=== PATIENT | male | born 1960 | race Caucasian/White ===

== ENCOUNTER 2023-09-27 09:53 | Outpatient (OUT) | payer OTHER, SELFPAY ==
--- NOTE | 2023-09-27 10:00 | ECG_ITS ---
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
--- NOTE | 2023-09-27 10:39 | P.GSHP_ITS ---
History of Present Illness History of Present Illness Chief complaint: right hydrocele Narrative: Patient presents for preadmission testing. The patient reports Intermittent right testicular swelling for over a year. The patient has been on two courses of antibiotics and the swelling has returned. He states he does have discomfort swelling. He denies dysuria, hematuria, fever, nausea, or any other complaints. Review of Systems ROS Narrative REVIEW OF SYSTEMS: Negative except as stated in HPI, ten or more systems reviewed. Constitutional: No fever , chills, weakness ENT: No sore throat or epistaxis Cardiovascular: No edema, chest pain, palpitations, or activity intolerance Respiratory: No shortness of breath, cough, or wheezing Musculoskeletal: No joint pain or swelling Gastrointestinal: No abdominal pain, constipation, diarrhea, or vomiting Genitourinary: No dysuria or hematuria Neurological: No numbness, tingling, weakness, or headache Psychiatric: No mood changes PFSH PFS Medical History (Updated 09/27/23 @ 10:26 by Sheila Polanco NP) Anxiety ?F41.9 - Anxiety disorder, unspecified (ICD-10) Kidney stones ?N20.0 - Calculus of kidney (ICD-10) Delayed recovery from anesthesia Male circumcision ?Z41.2 - Encounter for routine and ritual male circumcision (ICD-10) Hypertension ?I10 - Essential (primary) hypertension (ICD-10) Hyperlipidemia ?E78.5 - Hyperlipidemia, unspecified (ICD-10) HIV (human immunodeficiency virus infection) ?B20 - Human immunodeficiency virus [HIV] disease (ICD-10) BPH (benign prostatic hyperplasia) ?N40.0 - Benign prostatic hyperplasia without lower urinary tract symptoms (ICD-10) Hydrocele ?N43.3 - Hydrocele, unspecified (ICD-10) Surgical History (Updated 09/27/23 @ 10:26 by Sheila Polanco NP) History of colonoscopy ?Z98.890 - Other specified postprocedural states (ICD-10) Family History (Updated 09/27/23 @ 10:47 by Sheila Polanco NP) Other Family history of heart disease Testicular cancer Social History (Updated 09/27/23 @ 10:20 by Sheila Polanco NP) Within the past year, how often did you have a drink containing alcohol: never Score interpretation: A score less than 4 is consistent with normal alcohol consumption. Smoking status: Former smoker Non-prescribed substance use: denies use Previous occupational history: [employer] Highest level of school completed/degree received: high school graduate Meds Home Medications and Allergies Home Medications Medication Instructions Recorded Confirmed Type aspirin 81 mg tablet,delayed 81 mg PO DAILY 09/27/23 09/27/23 History release (Adult Aspirin Regimen) efavirenz 600 mg-emtricitabine 200 1 tab PO DAILY 09/27/23 09/27/23 History mg-tenofovir disoprox 300 mg tablet lisinopril 20 1 tab PO DAILY 09/27/23 09/27/23 History mg-hydrochlorothiazide 25 mg tablet simvastatin 40 mg tablet 40 mg PO .QHS 09/27/23 09/27/23 History Allergies Allergy/AdvReac Type Severity Reaction Status Date / Time Penicillins Allergy Rash Verified 09/27/23 10:16 Sulfa (Sulfonamide Allergy Rash Verified 09/27/23 10:16 Antibiotics) Exam Narrative Exam Narrative: Constitutional: Awake, alert, comfortable, well-appearing, nontoxic, interactive, vital signs as charted Head: Normocephalic, atraumatic Neck: Supple, normal appearance, normal range of motion, no meningeal signs, no lymphadenopathy Respiratory: No respiratory distress, breath sounds clear Cardiovascular: Regular rate and rhythm, strong and regular heart tones Abdomen: Nontender, normal bowel sounds, soft, no CVA tenderness Musculoskeletal: Normal gait, no swelling or edema Skin: No rashes or induration, no lesions, only visible skin inspected Neuro: No neurological deficits, normal sensation Psychiatric: Oriented ?3, normal affect Assessment and Plan Assessment and Plan (1) Hydrocele: Plan Right hydrocelectomy scheduled with Dr. Spangler 10/11/2023.
[2023-09-27 10:46] LABS: Basophils Absolute Auto 0.1 10^3/uL (0.0-0.1); Basophils Percent Auto 1.1 % (0.2-2.0); Eosinophils Absolute Auto 0.3 10^3/uL (0.0-0.7); Eosinophils Percent Auto 5.4 % (0.9-7.0); Hematocrit 42.4 % (42.0-54.0); Hemoglobin 13.4 g/dL (14.0-18.0); Immature Granulocytes Abs Auto 0.03 10^3/uL (0.00-0.03); Immature Granulocytes Pct Auto 0.6 % (0.0-0.5); Lymphocytes Absolute Auto 1.3 10^3/uL (1.2-3.8); Mean Corpuscular HGB Conc 31.6 g/dL (29.9-35.2); Mean Corpuscular Hemoglobin 29.9 pg (25.9-34.0); Mean Corpuscular Volume 94.6 fL (80.0-94.0); Mean Platelet Volume 9.2 fL (9.5-13.5); Monocytes Absolute Auto 0.5 10^3/uL (0.3-0.8); Monocytes Percent Auto 8.6 % (1.7-12.0); Neutrophils Absolute Auto 3.2 10^3/uL (1.4-6.5); Neutrophils Percent Auto 60.3 % (43.0-75.0); Platelet Count 317 10^3/uL (150-450); Red Blood Count 4.48 10^6/uL (4.70-6.10); Red Cell Distribution Width 12.1 % (11.0-15.0); White Blood Count 5.3 10^3/uL (4.0-11.0)
[2023-09-27 11:28] LABS: Anion Gap 10.9; BUN Creatinine Ratio 13.5; Calcium 9.7 mg/dL (8.5-10.1); Carbon Dioxide 31.9 mmol/L (21.0-32.0); Chloride 100 mmol/L (98-107); Estimated GFR (African America >60 (>=60); Estimated GFR (Non-African Ame >60 (>=60); Glucose 105 mg/dL (74-106); Potassium 3.8 mmol/L (3.5-5.1); Sodium 139 mmol/L (136-145)
[2023-09-27 11:56] LABS: INR 0.99; Partial Thromboplastin Time 27.1 sec (22.3-36.2); Prothrombin Time 10.5 sec (9.0-11.6)
== END 2023-09-27 09:54 | disposition home or self-care (01) ==
PROVIDERS: Family Provider Family Medicine; Visit Provider Urology
DX: Z01.810 Encounter for preprocedural cardiovascular examination (principal); Z01.818 Encounter for other preprocedural examination; Z01.812 Encounter for preprocedural laboratory examination; N43.2 Other hydrocele
CPT/HCPCS: 80048; 85025; 85610; 85730; 93005; G0463

== ENCOUNTER 2023-10-11 11:40 | Day surgery (SDC) | payer OTHER, SELFPAY ==
[2023-09-27 10:36] VITALS: BP 133/76; PULSE 55; RESP 14; TEMP 36.3; O2SAT 98; BMI 26.0
[2023-10-11] VITALS (9 sets, daily range): BP systolic 118–136; BP diastolic 65–78; PULSE 65–82; RESP 14–35; TEMP 36.2–36.5; O2SAT 92–98; BMI 26.0
--- OUTSIDE RECORDS SUMMARY | 2023-10-11 11:42 | XMS_ITS | CCD ---
Author Name Unknown Address [address] [place] [address] Organization [facility] Care Team Providers Care Financial Management Name Role Phone JOVANNI WHITNEY Primary Care Physician George GALINDO Attending Unavailable JOVANNI WHITNEY Referring Unavailable George GALINDO Attending Unavailable George GALINDO Attending Unavailable Allergies Allergy Classification Reported Allergen(s) Allergy Type Date of Onset Reaction(s) Facility (2 sources) Penicillin; Translations: [penicillin] Drug Allergy Eruption of skin (disorder) [facility] (2 sources) Sulfonamides (Antibiotic); Translations: [sulfa drugs] Drug allergy Eruption of skin (disorder) [facility] Medications Current Medications Medication Drug Class(es) Dates Sig (Normalized) Sig (Original) aspirin 81 mg oral capsule (1 source) Platelet Aggregation Inhibitor, Nonsteroidal Anti-inflammatory Drug Start: 08-10-2023 take 1 mg by mouth every twenty-four hours aspirin 81 mg oral capsule mg cap(s), Oral, q24hr, Refills(s) 0 Start Date: 08/10/23 Status: Ordered Completed/Discontinued Medications Medication Drug Class(es) Dates Sig (Normalized) Sig (Original) efavirenz 600 mg / emtricitabine 200 mg / tenofovir disoproxil fumarate 300 mg oral tablet (1 source) Human Immunodeficiency Virus Nucleoside Analog Reverse Transcriptase Inhibitor, Human Immunodeficiency Virus 1 Non-Nucleoside Analog Reverse Transcriptase Inhibitor Start: efavirenz/emtri citabine/tenofo vir 600 mg-200 mg-300 mg oral tablet Refill(s) 0, 30 EA, 0 Refill(s), TAKE 1 TABLET BY MOUTH EVERY DAY Start Date: 08/10/23 Status: Ordered hydroCHLOROthiazide 25 mg / lisinopril 20 mg oral tablet (1 source) Thiazide Diuretic, Angiotensin Converting Enzyme Inhibitor Start: 3 hydrochlorothia zide-lisinopril 25 mg-20 mg Tab Refill(s) 0, 90 EA, 0 Refill(s), TAKE 1 TABLET BY MOUTH IN THE MORNING Start Date: 08/10/23 Status: Ordered simvastatin 40 mg oral tablet (1 source) HMG-CoA Reductase Inhibitor Start: 3 simvastatin 40 mg Tab 90 EA, 0 Refill(s), TAKE 1 TABLET BY MOUTH EVERY NIGHT AT BEDTIME, Refills(s) 0 Start Date: 08/10/23 Status: Ordered Problems Problem Classification Problem Date Documented Date Episodic/Chronic Disorders of lipid metabolism (1 source) Hyperlipidemia 08-09-2023 Chronic Essential hypertension (1 source) Hypertensive disorder 08-09-2023 Chronic HIV infection (1 source) HIV positive 08-10-2023 Chronic Hyperplasia of prostate (2 sources) Benign prostatic hypertrophy without outflow obstruction; Translations: [Benign prostatic hyperplasia without lower urinary tract symptoms] Onset: 08-10-2023 Chronic Other aftercare (1 source) Long-term current use of aspirin; Translations: [MCFP (current) use of aspirin] Onset: 08-10-2023 Episodic Other male genital disorders (1 source) Hydrocele of testis; Translations: [Hydrocele, unspecified] Onset: 08-10-2023 Episodic Other male genital disorders (1 source) Disorder of male genital organ 08-10-2023 Episodic Unclassified (1 source) Long-term current use of aspirin 08-10-2023 Results Test Name Value Interpretation Reference Range [facility] Insurance Correspondenceon 0 10-08-2023 Insurance Correspondence [id number] 66#1.00TIFF Normal [facility] ECG 12-Leadon 09-28-2023 ECG 12-Lead [id number] #1.00TIFF Normal [facility] Lab Reportson 09-27-2023 Lab Reports [id number] #1.00TIFF Normal [facility] Lab Reports [id number] #1.00TIFF [facility] Consent for Procedure/Surger yon 08-13-2023 Consent for Procedure/Surgery [id number] 3#1.00TIFF [facility] Physician Referralon 023 Physician Referral [id number] #1.00TIFF [facility] Screenson 08-13-2023 Screens [id number] 8#1.00TIFF [facility] Ambulatory Visit Summaryon 10-10-2022 Ambulatory Visit Summary KRAIG FLOREZ JR :1960 Visit Date:08/10/2023 Ambulatory Visit Instructions Your Diagnosis Hydrocele BPH (benign prostatic hyperplasia) Aspirin long-term use Tests Performed Urnls Dip Stick Auto w/o Microscopy POC 24714 Your Care Team Attending Physician - George GALINDO MD Primary Care Physician - JOVANNI [place] Referring Physician - DEVONTE HASTINGS ResidentJOVANNI This Is Your Medications List Contact prescribing physician if questions or concerns aspirin (aspirin 81 mg oral capsule) efavirenz/emtricitab ine/tenofovir (efavirenz/emtricita bine/tenofovir 600 mg-200 mg-300 mg oral tablet) hydrochlorothiazide- lisinopril (hydrochlorothiazide -lisinopril 25 mg-20 mg Tab) simvastatin (simvastatin 40 mg Tab) Procedures Performed None. Discharge Vitals Heart Rate (Peripheral) 62 Respiratory Rate 16 Blood Pressure 121/69 Height 165 cm Height 65 in Weight 68.2 kg Weight 150.04 lb BMI 25.05 What to do next You Need to Schedule the Following Appointments Follow Up with JOSIE VELASQUEZ, ELIZABETH Smart When: Comments: sched R hydrocelectomy Where: [facility] [address] , [place] [address]- [phone] Medications What How Much When Instructions Unchanged aspirin (aspirin 81 mg oral capsule) Every 24 hours Contact prescribing physician if questions or concerns Unchanged efavirenz/ emtricitabine/ tenofovir (efavirenz/ emtricitabine/ tenofovir 600 mg-200 mg-300 mg oral tablet) 30 EA, 0 Refill(s), TAKE 1 TABLET BY MOUTH EVERY DAY Contact prescribing physician if questions or concerns Unchanged hydrochlorothiazide- lisinopril (hydrochlorothiazide -lisinopril 25 mg-20 mg Tab) 90 EA, 0 Refill(s), TAKE 1 TABLET BY MOUTH IN THE MORNING Contact prescribing physician if questions or concerns Unchanged simvastatin (simvastatin 40 mg Tab) 90 EA, 0 Refill(s), TAKE 1 TABLET BY MOUTH EVERY NIGHT AT BEDTIME Contact prescribing physician if questions or concerns Test Results Urnls Dip Stick Auto w/o Microscopy POC 26384 (08/10/2023) Bilirubin Urine Dipstick - Negative Blood Urine Dipstick - Negative Glucose Urine Dipstick - Negative Ketones Urine Dipstick - Negative Leukocytes Urine Dipstick - Negative Nitrite Urine Dipstick - Negative Protein Urine Dipstick - Negative Specific [place] Urine Dipstick - 1.015 Urine Appearance Urine Dipstick - Clear Urine Color Urine Dipstick - Yellow Urobilinogen Urine Dipstick - Normal 0.2-1 EU/dl pH Urine Dipstick - 7 Allergies penicillin (Rash) sulfa drugs (Rash) Problems Ongoing - Any problem that you are currently receiving treatment for. Aspirin long-term use BPH (benign prostatic hyperplasia) HIV positive Hydrocele Hyperlipidemia Hypertension Patient Survey You may receive a survey via text or e-mail asking about your office visit. Please share your experience with us by completing your survey. We appreciate your feedback and thank you for choosing us for your care. Education Materials Hydrocelectomy, Adult, Care After The following information offers guidance on how to care for yourself after your procedure. Your health care provider may also give you more specific instructions. If you have problems or questions, contact your health care provider. What can I expect after the procedure? After your procedure, it is common to have: ? Mild discomfort and swelling in the pouch that holds your testicles (scrotum). ? Bruising of the scrotum. Follow these instructions at home: Medicines ? Take ojal-kdh-ttnfbun and prescription medicines only as told by your health care provider. ? Ask your health care provider if the medicine prescribed to you: ? Requires you to avoid driving or using machinery. ? Can cause constipation. You may need to take these actions to prevent or treat constipation: ? Drink enough fluid to keep your urine pale yellow. ? Take higp-dtf-xtlxddt or prescription medicines. ? Eat foods that are high in fiber, such as beans, whole grains, and fresh fruits and vegetables. ? Limit foods that are high in fat and processed sugars, such as fried or sweet foods. Bathing ? Do not take baths, swim, or use a hot tub until your health care provider approves. Ask your health care provider if you may take showers. You may only be allowed to take sponge baths. ? If you were told to wear an athletic support strap (scrotal support), keep it dry. Take it off when you shower or bathe. Incision care ? Follow instructions from your health care provider about how to take care of your incision. Make sure you: ? Wash your hands with soap and water for at least 20 seconds before and after you change your bandage (dressing). If soap and water are not available, use hand assistant librarian. ? Change your dressing as told by your health care provider. ? Leave stitches (sutures), skin glue, or (more content not included)... Normal [facility] Patient Educationon 08-10-20 Patient Education Urology Hydrocelectomy, Adult, Care After The following information offers guidance on how to care for yourself after your procedure. Your health care provider may also give you more specific instructions. If you have problems or questions, contact your health care provider. What can I expect after the procedure? After your procedure, it is common to have: ? Mild discomfort and swelling in the pouch that holds your testicles (scrotum). ? Bruising of the scrotum. Follow these instructions at home: Medicines ? Take knpp-tnr-cefbteq and prescription medicines only as told by your health care provider. ? Ask your health care provider if the medicine prescribed to you: ? Requires you to avoid driving or using machinery. ? Can cause constipation. You may need to take these actions to prevent or treat constipation: ? Drink enough fluid to keep your urine pale yellow. ? Take awcs-pvf-hhvxyxr or prescription medicines. ? Eat foods that are high in fiber, such as beans, whole grains, and fresh fruits and vegetables. ? Limit foods that are high in fat and processed sugars, such as fried or sweet foods. Bathing ? Do not take baths, swim, or use a hot tub until your health care provider approves. Ask your health care provider if you may take showers. You may only be allowed to take sponge baths. ? If you were told to wear an athletic support strap (scrotal support), keep it dry. Take it off when you shower or bathe. Incision care ? Follow instructions from your health care provider about how to take care of your incision. Make sure you: ? Wash your hands with soap and water for at least 20 seconds before and after you change your bandage (dressing). If soap and water are not available, use hand assistant librarian. ? Change your dressing as told by your health care provider. ? Leave stitches (sutures), skin glue, or adhesive strips in place. These skin closures may need to stay in place for 2 weeks or longer. If adhesive strip edges start to loosen and curl up, you may trim the loose edges. Do not remove adhesive strips completely unless your health care provider tells you to do that. ? Check your incision and scrotum every day for signs of infection. Check for: ? More redness, swelling, or pain. ? Fluid or blood. ? Warmth. ? Pus or a bad smell. Managing pain and swelling If directed, put ice on the affected area. To do this: ? Put ice in a plastic bag. ? Place a towel between your skin and the bag. ? Leave the ice on for 20 minutes, 2?3 times per day. ? Remove the ice if your skin turns bright red. This is very important. If you cannot feel pain, heat, or cold, you have a greater risk of damage to the area. Activity ? Do not lift anything that is heavier than 10 lb (4.5 kg) until your health care provider says that it is safe. ? If you were given a sedative during the procedure, it can affect you for several hours. Do not drive or operate machinery until your health care provider says that it is safe. ? Ask your health care provider when it is safe to drive. ? Return to your normal activities as told by your health care provider. Ask your health care provider what activities are safe for you. General instructions ? Do not use any products that contain nicotine or tobacco. These products include cigarettes, chewing tobacco, and vaping devices, such as e-cigarettes. These can delay healing after surgery. If you need help quitting, ask your health care provider. ? If you were given a scrotal support, wear it as told by your health care provider. ? Keep all follow-up visits. This is important. If you had a drain put in during the procedure, you will need to have it removed at a follow-up visit. Contact a health care provider if: ? Your pain is not controlled with medicine. ? You have more redness, swelling, or pain around your scrotum. ? You have fluid or blood coming from your incision. ? Your incision feels warm to the touch. ? You have pus or a bad smell coming from your incision. ? You have a fever. Get help right away if: ? You develop shaking, chills, and a fever that is higher than 101.8?F (38.8?C). ? You have redness or swelling that starts at your scrotum and spreads outward to your whole groin. ? You develop swelling in your legs. ? You have difficulty breathing. These symptoms may be an emergency. Get help right away. Call 911. ? Do not wait to see if the symptoms will go away. ? Do not drive yourself to the hospital. Summary ? After a hydrocelectomy, it is common to have mild discomfort, swelling, and bruising. ? Do not take baths, swim, or use a hot tub until your health care provider approves. Ask your health care provider if you may take showers. ? If directed, put ice on the affected area to help with pain and swelling. ? Do not lift anything that is heavier than 10 lb (4.5 kg) until your health care provider says th (more content not included)... Normal [facility] RAD - Ultrasound Reporton RAD - Ultrasound Report [id number] #1.00TIFF Normal [facility] Vital Signs Date Time Vital Sign Value Performing Clinician Hamilton barlow 08-10-2023 09:56-0500 Blood Pressure Location George GALINDO [facility] 08-10-2023 09:56-0500 Diastolic blood pressure 69 mm[Hg] George GALINDO [facility] 08-10-2023 09:56-0500 Heart rate 62 /min Georgeemeka GALINDO [facility] 08-10-2023 09:56-0500 Respiratory rate 16 /min George GALINDO [facility] 08-10-2023 09:56-0500 Systolic blood pressure 121 mm[Hg] Georgeemeka GALINDO [facility] Encounters Encounter Date Encounter Type Care Provider Facility Start: 11-05-2023 ambulatory George Ortizi ty:[facility] Start: 10-11-2023 ambulatory George GALINDO Facili ty:[id number] Start: 08-10-2023 End: 08-11-2023 ambulatory JOVANNI WHITNEY Facility:[facility] Start: 08-10-2023 End: 08-10-2023 Patient encounter procedure George GALINDO [facility] Start: 05-16-2023 ambulatory George GALINDO Facility :[facility] Procedures Date Procedure Procedure Detail Performing Clinician None (qualifier value) Clari GALINDO Immunizations Immunization Date Immunization Notes Care Provider [facility] 07-14-2022 influenza virus vaccine, unspecified formulation George GALINDO [facility] 09-03-2021 SARS-CoV-2 (COVID-19 ) mRNA-1273 vaccine George GALINDO [facility] 07-11-2021 influenza virus vaccine, unspecified formulation George GALINDO [facility] 01-13-2021 SARS-CoV-2 (COVID-19 ) mRNA-1273 vaccine [place] [facility] 12-14-2020 SARS-CoV-2 (COVID-19 ) mRNA-1273 vaccine George GALINDO [facility] 07-10-2020 influenza virus vaccine, unspecified formulation George GALINDO [facility] 07-20-2019 influenza virus vaccine, unspecified formulation George GALINDO [facility] 06-21-2018 influenza virus vaccine, unspecified formulation George GALINDO [facility] 07-04-2017 influenza virus vaccine, unspecified formulation George GALINDO [facility] 07-12-2016 influenza virus vaccine, unspecified formulation George GALINDO [facility] 07-14-2015 influenza virus vaccine, unspecified formulation George GALINDO [facility] 08-08-2013 influenza virus vaccine, unspecified formulation George GALINDO [facility] Payers Date Payer Category Payer Unknown [id number] 2016 Unknown [id number] 1960 Unknown [id number] 1960 Unknown [id number] 1960 Unknown [id number] [id number] Social History Date Type Detail Facility Start: 08-10-2023 Tobacco smoking status Ex-smoker (fi ndjanusz) [facility] Tobacco smoking status Never [facility] Sex Assigned At Male [facility] Functional Status Date Assessment Result Facility 08-10-2023 Functional Status N/A [facility] Clinical Note 08-10-2023 Note Date & Type Note Facility 08-10-2023 Note Chief Complaint Referral *Hydrocele HPI Staff Referral for hydrocele by Dr. Jovanni Whitney. Pt is a new pt. Never before seen in our office. Enlarged Rt Testicle intermittently for the past year. Has taken abx therapy 2x. First time it went back down to normal size, this last time he has finished the abx, and its still enlarged, Does not feel any lumps. Denies pain. Does have Fam Hx of Testicular Cancer. Brother. Denies urinary complaints. PSA 12/13/22- 0.29 Scrotal US 05/22/23 History of Present Illness Tests reviewed: reviewed UA, referral records I have reviewed the previous health record information and history for this patient from external providers. I have reviewed and verified the staff HPI to be accurate for this encounter. Review of Systems ROS - Provider Constitutional: denies weight loss, denies hot flashes. Eyes: denies eye problems. Gastrointestinal: denies nausea, denies vomiting. Cardiovascular: denies chest pain or angina. Integumentary: no dryness Musculoskeletal: denies musculoskeletal symptoms. ENMT: denies otolaryngeal symptoms. Respiratory: no shortness of breath. Heme/Lymph: denies easy bleeding tendency, denies easy bruising tendency. Psychiatric: no confusion, no anxiety. Genitourinary: See HPI. Physical Exam Vitals & Measurements HR: 62(Peripheral) RR: 16 BP: 121/69 HT: 65 in HT: 165 cm WT: 68.2 kg WT: 150.04 lb BMI: 25.05 General Appearance: alert, no distress, well nourished, well developed male. Head: normocephalic . Eyes: normal orbit and globe. ENMT: normal examination of external ears. Chest: Lungs CTA, respirations non labored. Cardiovascular: regular rate and rhythm. Abdomen: soft, non distended, no tenderness, no mass or organomegaly, no hernia. Genitourinary: abnormal bilateral hydroceles...R>>L scrotum, normal testes, normal urethra, normal epididymis, normal vas deferens/spermatic cord. Flank Pain: none. Bladder: nonpalpable. Penis: normal shaft, normal glans. Lymph Nodes: unremarkable palpation of the cervical area. Skin: warm, dry, no bruising. Psychiatric: cooperative, affect appropriate for age, normal judgement, euthymic mood. Assessment/Plan Kraig is a 63 yo M new pt referred by Dr. Jovanni Whitney for hydrocele. 1. Hydrocele (N43.3: Hydrocele, unspecified) Scrotal US 05/22/23 NOMS - bilateral fluid surrounding testicles, measuring 12.2 x 10.5 x 6.7 cm on R and 8.3 x 2.8 x 3.5 cm on L. Discussed imaging results. Not suspicious for cancer. States his brother had hydroceles which were cancerous. Reports he has had hydroceles for about a year. Has been given abx for swelling which has helped to decrease size, felt size was completely back to normal after abx course. Denies burning or pain with urination. States he is only aware of hydrocele on L side. Wears scrotal support. Admits L hydrocele is an annoyance. Discussed treatment options, such as hydrocelectomy, given pt has dealt with this for a year and the size being bothersome. -Will schedule Right Hydrocelectomy. The procedure risks, benefits, and treatment alternatives have been discussed with the patient. These include bleeding, infection, recurrence of fluid collection in the scrotum in 10-15%, and need for additional procedures, among others. Full informed consent has been obtained. Will order General anesthesia. 2. BPH (benign prostatic hyperplasia) (N40.0: Benign prostatic hyperplasia without lower urinary tract symptoms) IPSS 4. Not currently taking any BPH meds. Voids more frequently in mornings due to coffee intake. Good stream. Feels he empties completely. UA today negative for blood and infection. PSA 12/13/22 - 0.29 3. 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 The inherent risks of stopping these medications has been discussed, including but not limited to blood vessel clotting, heart attack, and stroke. The patient has had an opportunity to discuss this with me and accepts these risks, among others, and wishes to proceed. Follow-up With When Contact Information George GALINDO MD, URL [facility] [address] [place] [address]- [phone] Additional Instructions: sched R hydrocelectomy Patient Education Hydrocelectomy, Adult, Care After Hydrocelectomy, Adult Hydrocele, Adult Dean, Liliam Flanagan, personally scribed for Dr. Galindo on 08/10/2023 10:27:03. . Documentation recorded by the scribeLiliam, accurately reflects the services(s) I performed and decisions made by me. Authenticated by Dr. Galindo on 08/10/2023 10:29:19. Problem List/Past Medical History Ongoing Aspirin long-term use BPH (benign prostatic hyperplasia) HIV positive Hydrocele Hyperlipidemia Hypertension Historical No qualifying data Procedure/Surg (more content not included)... [facility] Comment on above: Result Comment: Elec tronically Signed By: George GALINDO MD\.br\Date and Time Signed: 08/10/23 10:29 EST\.br\Electronically Co-Signed By: Liliam Flanagan\.br\Date and Time Co-Signed: 08/10/23 10:27 EST Hospital Discharge instructions 08-10-2023 Note Date & Type Note Facility 08-10-2023 Hospital Discharge instructions Patient Education 08/10/2023 10:24:17 Hydrocelectomy, Adult, Care After Hydrocelectomy, Adult, Care After The following information offers guidance on how to care for yourself after your procedure. Your health care provider may also give you more specific instructions. If you have problems or questions, contact your health care provider. What can I expect after the procedure? After your procedure, it is common to have: Mild discomfort and swelling in the pouch that holds your testicles (scrotum). Bruising of the scrotum. Follow these instructions at home: Medicines Take rxms-drp-brqlsiq and prescription medicines only as told by your health care provider. Ask your health care provider if the medicine prescribed to you: ?Requires you to avoid driving or using machinery. ?Can cause constipation. You may need to take these actions to prevent or treat constipation: ?Drink enough fluid to keep your urine pale yellow. ?Take ihqk-eep-kfoiraf or prescription medicines. ?Eat foods that are high in fiber, such as beans, whole grains, and fresh fruits and vegetables. ?Limit foods that are high in fat and processed sugars, such as fried or sweet foods. Bathing Do not take baths, swim, or use a hot tub until your health care provider approves. Ask your health care provider if you may take showers. You may only be allowed to take sponge baths. If you were told to wear an athletic support strap (scrotal support), keep it dry. Take it off when you shower or bathe. Incision care Follow instructions from your health care provider about how to take care of your incision. Make sure you: ?Wash your hands with soap and water for at least 20 seconds before and after you change your bandage (dressing). If soap and water are not available, use hand assistant librarian. ?Change your dressing as told by your health care provider. ?Leave stitches (sutures), skin glue, or adhesive strips in place. These skin closures may need to stay in place for 2 weeks or longer. If adhesive strip edges start to loosen and curl up, you may trim the loose edges. Do not remove adhesive strips completely unless your health care provider tells you to do that. Check your incision and scrotum every day for signs of infection. Check for: ?More redness, swelling, or pain. ?Fluid or blood. ?Warmth. ?Pus or a bad smell. Managing pain and swelling If directed, put ice on the affected area. To do this: Put ice in a plastic bag. Place a towel between your skin and the bag. Leave the ice on for 20 minutes, 2 3 times per day. Remove the ice if your skin turns bright red. This is very important. If you cannot feel pain, heat, or cold, you have a greater risk of damage to the area. Activity Do not lift anything that is heavier than 10 lb (4.5 kg) until your health care provider says that it is safe. If you were given a sedative during the procedure, it can affect you for several hours. Do not drive or operate machinery until your health care provider says that it is safe. Ask your health care provider when it is safe to drive. Return to your normal activities as told by your health care provider. Ask your health care provider what activities are safe for you. General instructions Do not use any products that contain nicotine or tobacco. These products include cigarettes, chewing tobacco, and vaping devices, such as e-cigarettes. These can delay healing after surgery. If you need help quitting, ask your health care provider. If you were given a scrotal support, wear it as told by your health care provider. Keep all follow-up visits. This is important. If you had a drain put in during the procedure, you will need to have it removed at a follow-up visit. Contact a health care provider if: Your pain is not controlled with medicine. You have more redness, swelling, or pain around your scrotum. You have fluid or blood coming from your incision. Your incision feels warm to the touch. You have pus or a bad smell coming from your incision. You have a fever. Get help right away if: You develop shaking, chills, and a fever that is higher than 101.8 F (38.8 C). You have redness or swelling that starts at your scrotum and spreads outward to your whole groin. You develop swelling in your legs. You have difficulty breathing. These symptoms may be an emergency. Get help right away. Call 911. Do not wait to see if the symptoms will go away. Do not drive yourself to the hospital. Summary After a hydrocelectomy, it is common to have mild discomfort, swelling, and bruising. Do not take baths, swim, or use a hot tub until your health care provider approves. Ask your health care provider if you may take showers. If directed, put ice on the affected area to help with pain and swelling. Do not lift anything that is heavier than 10 lb (4.5 kg) until your health care provider says that it is safe. Return to your normal activities as told by your health care provider. If you were given a scrotal support, keep it dry. Wear the scrotal support as told by your health care provider. This information is not intended to replace advice given to you by your health care provider. Make sure you discuss any questions you have with your health care provider. Document Revised: 05/04/2022 Document Reviewed: 05/04/2022 [employer] Patient [employer] 2022 [employer]. 08/10/2023 10:24:16 Hydrocelectomy, Adult Hydrocelectomy, Adult A hydrocelectomy is a surgical procedure to remove a collection of fluid (hydrocele) from the scrotum. The scrotum is the pouch that holds the testicles. You may need to have this procedure if a hydrocele is causing painful swelling in your scrotum. Tell a health care provider about: Any allergies you have. All medicines you are taking, including vitamins, herbs, eye drops, creams, and feij-vrl-bdoddei medicines. Any problems you or family members have had with anesthetic medicines. Any bleeding problems you have. Any surgeries you have had. Any medical conditions you have. What are the risks? Generally, this is a safe procedure. However, problems may occur, including: Bleeding into the scrotum (scrotal hematoma). Damage to nearby structures or organs, including to the testicle or the tube that carries sperm out of the testicle (vas deferens). Infection. Allergic reactions to medicines. What happens before the procedure? When to stop eating and drinking Follow instructions from your health care provider about what you may eat and drink before your procedure. These may include: 8 hours before your procedure ?Stop eating most foods. Do not eat meat, fried foods, or fatty foods. ?Eat only light foods, such as toast or crackers. ?All liquids are okay except energy drinks and alcohol. 6 hours before your procedure ?Stop eating. ?Drink only clear liquids, such as water, clear fruit juice, black coffee, plain tea, and sports drinks. ?Do not drink energy drinks or alcohol. 2 hours before your procedure ?Stop drinking all liquids. ?You may be allowed to take medicines with small sips of water. If you do not follow your health care provider's instructions, your procedure may be delayed or canceled. Medicines Ask your health care provider about: Changing or stopping your regular medicines. This is especially important if you are taking diabetes medicines or blood thinners. Taking medicines such as aspirin and ibuprofen. These medicines can thin your blood. Do not take these medicines unless your health care provider tells you to take them. Taking hpjs-lgg-bxhmwcc medicines, vitamins, herbs, and supplements. Surgery safety Ask your health care provider: How your surgery site will be marked. What steps will be taken to help prevent infection. These steps may include: ?Removing hair at the surgery site. ?Washing skin with a germ-killing soap. ?Taking antibiotic medicine. General instructions Do not use any products that contain nicotine or tobacco for at least 4 weeks before the procedure. These products include cigarettes, chewing tobacco, and vaping devices, such as e-cigarettes. If you need help quitting, ask your health care provider. If you will be going home right after the procedure, plan to have a responsible adult: ?Take you home from the hospital or clinic. You will not be allowed to drive. ? Care for you for the time you are told. What happens during the procedure? An IV will be inserted into one of your veins. You will be given one or both of the following: ?A medicine to make you relax (sedative). ?A medicine to make you fall asleep (general anesthetic). A small incision will be made through the skin of your scrotum. Your testicle and the hydrocele will be located, and the hydrocele sac will be opened with an incision. The fluid will be drained from the hydrocele. Part of the hydrocele sac may be removed. The hydrocele will be closed with stitches that dissolve (absorbable sutures). This prevents fluid from building up again. If your hydrocele is large, you may have a thin, rubber drain placed to allow fluid to drain after the procedure. The incision in your scrotum will be closed with absorbable sutures, skin glue, or adhesive strips. A bandage (dressing) will be placed over the incision. The dressing may be held in place with an athletic support strap (scrotal support). The procedure may vary among health care providers and hospitals. What happens after the procedure? Your blood pressure, heart rate, breathing rate, and blood oxygen level will be monitored until you leave the hospital or clinic. You will be given pain medicine as needed. Your IV will be removed, and your insertion site will be checked for bleeding. You may need to wear a scrotal support. This holds the dressing in place and supports your scrotum. If you were given a sedative during the procedure, it can affect you for several hours. Do not drive or operate machinery until your health care provider says that it is safe. Summary A hydrocelectomy is a surgical procedure to remove a collection of fluid from the scrotum. You may need to have this procedure if a hydrocele is causing painful swelling in your scrotum. During the procedure, the hydrocele will be drained and then closed with stitches that dissolve (absorbable sutures). This prevents fluid from building up again. If your hydrocele is large, you may have a thin, rubber drain placed to allow fluid to drain after the procedure. You may need to wear a scrotal support after your procedure. This holds the dressing in place and supports your scrotum. This information is not intended to replace advice given to you by your health care provider. Make sure you discuss any questions you have with your health care provider. Document Revised: 05/04/2022 Document Reviewed: 05/04/2022 [employer] Patient [employer] 2022 [employer]. 08/10/2023 10:19:15 Hydrocele, Adult Hydrocele, Adult A hydrocele is a collection of fluid in the loose pouch of skin that holds the testicles (scrotum). It can occur in one or both testicles. This may happen because: The amount of fluid produced in the scrotum is not absorbed by the rest of the body. Fluid from the abdomen fills the scrotum. Normally, the testicles develop in the abdomen and then drop into the scrotum before . The tube that the testicles travel through usually closes after the testicles drop. If the tube does not close, fluid from the abdomen can fill the scrotum. This is not very common in adults. What are the causes? A hydrocele may be caused by: An injury to the scrotum. An infection. Decreased blood flow to the scrotum. Twisting of a testicle (testicular torsion). A defect. A tumor or cancer of the testicle. Sometimes, the cause is not known. What are the signs or symptoms? A hydrocele feels like a water-filled balloon. It may also feel heavy. Other symptoms include: Swelling of the scrotum. The swelling may decrease when you lie down. You may also notice more swelling at night than in the morning. This is called a communicating hydrocele, in which the fluid in the scrotum goes back into the abdominal cavity when the position of the scrotum changes. Swelling of the groin. Mild discomfort in the scrotum. Pain. This can develop if the hydrocele was caused by infection or twisting. The larger the hydrocele, the more likely you are to have pain. Swelling may also cause pain. How is this diagnosed? This condition may be diagnosed based on a physical exam and your medical history. You may also have tests, including: Imaging tests, such as an ultrasound. A transillumination test. This test takes place in a dark room where a light is placed on the skin of the scrotum. Clear liquid will not impede the light and the scrotum will be illuminated. This helps a health care provider distinguish a hydrocele from a tumor. Blood or urine tests. How is this treated? Most hydroceles go away on their own. If you have no discomfort or pain, your health care provider may suggest close monitoring of your condition until the condition goes away or symptoms develop. This is called watch and wait or watchful waiting. If treatment is needed, it may include: Treating an underlying condition. This may include taking an antibiotic medicine to treat an infection. Having surgery to stop fluid from collecting in the scrotum. Having surgery to drain the fluid. Surgery may include: ?Hydrocelectomy. For this procedure, an incision is made in the scrotum to remove the fluid. ?Needle aspiration. A needle is used to drain fluid. However, the fluid buildup will come back quickly and may lead to an infection of the scrotum. This is rarely done. Follow these instructions at home: Medicines Take coji-yfa-mfidvfo and prescription medicines only as told by your health care provider. If you were prescribed an antibiotic medicine, take it as told by your health care provider. Do not stop taking the antibiotic even if you start to feel better. General instructions Watch the hydrocele for any changes. Keep all follow-up visits. This is important. Contact a health care provider if: You notice any changes in the hydrocele. The swelling in your scrotum or groin gets worse. The hydrocele becomes red, firm, painful, or tender to the touch. You have a fever. Get help right away if you: Develop a lot of pain or your pain becomes worse. Have chills. Have a high fever. Summary A hydrocele is a collection of fluid in the loose pouch of skin that holds the testicles (scrotum). A hydrocele can cause swelling, discomfort, and pain. In adults, the cause of a hydrocele may not be known. However, it is sometimes caused by an infection or the twisting of a testicle. Hydroceles often go away on their own. If a hydrocele causes pain, treating the underlying cause may be needed to ease the pain. This information is not intended to replace advice given to you by your health care provider. Make sure you discuss any questions you have with your health care provider. Document Revised: 05/04/2022 Document Reviewed: 05/04/2022 [employer] Patient [employer] 2022 [employer]. Follow Up Care 05/16/2023 15:44:22 With:JOSIE VELASQUEZ, George Hansen, URL Address: [facility] [address], [place] [address] [phone] When: Unknown Comments:vini Hansen hydrocelectomy [facility] Evaluation + Plan note Note Date & Type Note Facility Evaluation + Plan note Future Appointments Appointment Date:11/05/2023 09:45:00 AM Scheduled Provider:George GALINDO MD Location:[facility] Appointment Type:URO Office Visit [facility] Hospital course Narrative Note Date & Type Note Facility Hospital course Narrative No data available for this section [facility] Progress note Note Date & Type Note Facility Progress note No data available for this section [facility] Summary Purpose Family History No Family History Records Found Advance Directives No Advanced Directives Records Found Additional Source Comments Patient Care team informatio n (unrecognized section and content) Personnel Name: JOVANNI Mesa Address: Address: [address] [place], [place] [address] (unrecognized sect ion and content) No Status Records Found INFORMATION SOURCE (unrecogn ized section and content) DATE CREATED AUTHOR 10/08/2023 [facility] FOR RECORDS PERTAINING TO PATIENTS WHO ARE OR HAVE BEEN ENROLLED IN A CHEMICAL DEPENDENCY/SUBSTANCEABUSE PROGRAM, SOME INFORMATION MAY BE OMITTED. This clinical summary was aggregated from multiple sources. Caution should be exercised in using it in the provision of clinical care. This summary normalizes information from multiple sources, and as a consequence, information in this document may materially change the coding, format and clinical context of patient data. In addition, data may be omitted in some cases. CLINICAL DECISIONS SHOULD BE BASED ON THE PRIMARY CLINICAL RECORDS. [facility] [employer] [facility]. provides no warranty or guarantee of the accuracy or completeness of information in this document.
[2023-10-11] MEDS: LACTATED RINGER'S SOLUTION 1,000 ML 50 ML IV ×2 (11:59→14:19)
[2023-10-11] MEDS: CIPROFLOXACIN IN 5 % DEXTROSE 400 MG/200 ML PIGGYBACK 200 MG IV (13:02)
[2023-10-11] MEDS: BACITRACIN OINTMENT 28.4 GM TUBE 1 APPLIC TOPICAL (14:27)
--- NOTE | 2023-10-11 14:51 | PM.URSON ---
Urology Surgery Operative Note Operative Note Procedure Date: 10/11/23 Time Out Performed: yes Pre-op Diagnosis: Large right hydrocele Post-op Diagnosis: same as pre-op Procedures performed: 1. Right hydrocelectomy Anesthesia: General-LMA Primary Surgeon: George Spangler Complications: None Estimated blood loss (mL): 10 Findings: 400+ cc of straw-colored fluid Specimens: Hydrocele sac Drains: None Indications for Procedures: This gentleman has a large right hydrocele that is bothersome. He is desirous for attempted surgical correction. He has signed an informed consent for right hydrocelectomy after all risks were explained. Some of these risks include bleeding, infection, anesthesia, recurrence of hydrocele, and need for possible further Detailed description of Procedure: The patient was brought to the operating room and placed on the operating room table in the supine position. SCDs were placed on the lower extremities and turned on and functioning during the entire case. Timeout was done by all parties in the room. We all agreed upon the patient's identification and the planned procedures for this patient. Genn. anesthesia was then administered. His genitalia were sterilely prepped and draped in the usual fashion. I started by making a transverse 4 cm incision in the hemiscrotum with a 15 blade scalpel. Sharp dissection was carried down through the scrotal layers with the needle tip Bovie cautery. I arrived at a very tense fluid-filled blue right hydrocele. I sharply and bluntly dissected this free circumferentially and then bluntly dissected the cord so the right hemiscrotal contents could be delivered from the scrotum. I then cut the hydrocele sac and aspirated 400+ cc of straw-colored fluid. The sac was opened up sharply in a cephalad and caudad direction. 4 hemostats were placed on the edges of the sac and the redundant sac was then excised circumferentially with the Bovie cautery. This was sent for permanent sections. I then coagulated the edges of the sac circumferentially with the Bovie cautery for hemostatic purposes. The testicle and epididymis appeared normal. I then coagulated several small bleeding areas within the dartos layer. He had significantly more oozing from his dartos layer than usual. I was suspect of a platelet dysfunction problem. Once we had perfect hemostasis the area was irrigated. I then placed the right testicle and cord in the right hemiscrotum in the proper anatomic orientation. The testicle was pink. The dartos layer was then closed with 3-0 Vicryl in a running fashion. The skin was closed with 4-0 Vicryl in a running fashion. All sponge needle and instrument counts were correct. Bacitracin ointment was placed over the incision. Sterile fluffs were applied as well as a scrotal support. The [facility] and wheeled to PACU in stable condition.
== END 2023-10-11 15:50 | disposition home or self-care (01) ==
PROVIDERS: Family Provider Family Medicine; Visit Provider Urology
PROC: (CPT 920; principal; 2023-10-11 12:50)
DX: N43.3 Hydrocele, unspecified (principal); I10 Essential (primary) hypertension; E78.5 Hyperlipidemia, unspecified; Z21 Asymptomatic human immunodeficiency virus [HIV] infection status; Z79.899 Other long term (current) drug therapy; Z87.891 Personal history of nicotine dependence; Z79.82 Long term (current) use of aspirin; F41.9 Anxiety disorder, unspecified; Z87.442 Personal history of urinary calculi; N40.0 Benign prostatic hyperplasia without lower urinary tract symptoms; Z80.43 Family history of malignant neoplasm of testis
CPT/HCPCS: 55040; 36415; 88302; J0744; J1100; J1885; J2250; J2405; J2704; J3010

== ENCOUNTER 2024-07-01 14:34 | Outpatient (OUT) | payer OTHER, MEDICARE, SELFPAY ==
--- OUTSIDE RECORDS SUMMARY | 2024-07-01 14:38 | XMS_ITS | CCD ---
Author Organization [facility] Care Team Providers Care Oyster Tonger Name Role Phone JOVANNI GARCIA Primary Care Physician [phone] JOVANNI GARCIA Referring Unavailable George SPANGLER Attending Unavailable AUDREY MEJIAS Attending Unavailable George SPANGLER Attending Unavailable George SPANGLER Attending Unavailable George SPANGLER Attending Unavailable JOVANNI GARCIA Attending Unavailable MITZI RICH Attending Unavailable Allergies Allergy Classification Reported Allergen(s) Allergy Type Date of Onset Reaction(s) Facility (5 sources) Penicillin; Translations: [penicillin] Drug Allergy Eruption of skin (disorder) [facility] (5 sources) Sulfonamides (Antibiotic); Translations: [sulfa drugs] Drug allergy Eruption of skin (disorder) [facility] Medications Current Medications Medication Drug Class(es) Dates Sig (Normalized) Sig (Original) aspirin 81 mg oral capsule (2 sources) Platelet Aggregation Inhibitor, Nonsteroidal Anti-inflammatory Drug Start: 08-10-2023 take 1 mg by mouth every twenty-four hours aspirin 81 mg oral capsule mg cap(s), Oral, q24hr, Refills(s) 0 Start Date: 08/10/23 Status: Ordered Completed/Discontinued Medications Medication Drug Class(es) Dates Sig (Normalized) Sig (Original) efavirenz 600 mg / emtricitabine 200 mg / tenofovir disoproxil fumarate 300 mg oral tablet (4 sources) Human Immunodeficiency Virus Nucleoside Analog Reverse Transcriptase Inhibitor, Human Immunodeficiency Virus 1 Non-Nucleoside Analog Reverse Transcriptase Inhibitor Start: 3 efavirenz/emtri citabine/tenofo vir 600 mg-200 mg-300 mg oral tablet Refill(s) 0, 30 EA, 0 Refill(s), TAKE 1 TABLET BY MOUTH EVERY DAY Start Date: 08/10/23 Status: Ordered hydroCHLOROthiazide 25 mg / lisinopril 20 mg oral tablet (4 sources) Thiazide Diuretic, Angiotensin Converting Enzyme Inhibitor Start: 3 hydrochlorothia zide-lisinopril 25 mg-20 mg Tab Refill(s) 0, 90 EA, 0 Refill(s), TAKE 1 TABLET BY MOUTH IN THE MORNING Start Date: 08/10/23 Status: Ordered simvastatin 40 mg oral tablet (4 sources) HMG-CoA Reductase Inhibitor Start: 3 simvastatin 40 mg Tab 90 EA, 0 Refill(s), TAKE 1 TABLET BY MOUTH EVERY NIGHT AT BEDTIME, Refills(s) 0 Start Date: 08/10/23 Status: Ordered Problems Problem Classification Problem Date Documented Date Episodic/Chronic Disorders of lipid metabolism (4 sources) Hyperlipidemia 08-09-2023 Chronic Essential hypertension (4 sources) Hypertensive disorder 08-09-2023 Chronic HIV infection (4 sources) HIV positive 08-10-2023 Chronic Hyperplasia of prostate (8 sources) Benign prostatic hypertrophy without outflow obstruction; Translations: [Benign prostatic hyperplasia without lower urinary tract symptoms] Onset: 08-10-2023 Chronic Other aftercare (2 sources) Long-term current use of aspirin; 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] Onset: 08-10-2023 Episodic Other male genital disorders (2 sources) Male erectile dysfunction, unspecified; Translations: [Erectile dysfunction] Onset: 06-05-2024 Chronic Other male genital disorders (4 sources) Hydrocele of testis; Translations: [Hydrocele, unspecified] Onset: 08-10-2023 Episodic Other male genital disorders (4 sources) Disorder of male genital organ 08-10-2023 Episodic Other screening for suspected conditions (not mental disorders or infectious disease) (1 source) Encounter for screening for malignant neoplasm of prostate; Translations: [Screening for malignant neoplasm done] Onset: 06-04-2024 Episodic Unclassified (4 sources) Long-term current use of aspirin 08-10-2023 Unclassified (1 source) Patient encounter status 06-04-2024 Results Test Name Value Interpretation Reference Range Facility Urology Office/Clinic Noteon 06-05-2024 Urology Office/Clinic Note Urology Office/Clinic Note Chief Complaint 5 month follow up HPI Staff 4 month f/u. Dx: hydrocele, BPH. *No urological meds Last PSA 12/13/22 - 0.29 Per pt had has blood work done by his PCP office. Done in december 2023- 0.64 S/p R hydrocelectomy 10/11/23. Dysuria: denies Incomplete bladder emptying: denies Hematuria: denies visible blood Frequency: denies Urgency: denies Nocturia: once a night Stream: denies hesitancy, has a steady stream Leaking: denies Post void dripping: denies Wearing pads/ Depends: denies Urge incontinence: denies Stress incontinence: denies Incontinence without Sensory Awareness: denies Abdominal pain: denies Flank pain: denies Sexual complaints: _ Review of Systems PHQ Score Initial Depression Screen Score: 0 SCORE no fever, chills, malaise, myalgia. no rash/lesions. no chest pain, palpitations, or SOB. no abdominal pain, nausea, vomiting. no unilateral calf swelling, redness, pain Physical Exam Vitals & Measurements HR: 59(Peripheral) RR: 16 BP: 105/61 HT: 65 in HT: 165 cm WT: 69.4 kg WT: 152.68 lb BMI: 25.49 General: nontoxic, NAD Mouth: moist mucosa Lungs: normal respiratory effort Cardio: regular rate, good distal perfusion Abdomen: nondistended, no suprapubic distention or tenderness, no CVA tenderness Neurologic: Grossly normal Skin: No rashes or suspicious lesions Assessment/Plan UA completed in office today shows no microhematuria or signs of infection. 1. Hydrocele (N43.3: Hydrocele, unspecified) Scrotal US 05/22/23 NOMS - bilateral fluid surrounding testicles, measuring 12.2 x 10.5 x 6.7 cm on R and 8.3 x 2.8 x 3.5 cm on L. S/p R hydrocelectomy 10/11/23 - Path shows benign fibromembranous tissue with mild chronic inflammation. 12/31/23 - Swelling has subsided significantly. still with some induration throughout. Able to sit without any discomfort. Recommended pt to continue to wear scrotal support. TODAY: Swelling pretty much completely resolved. Pt very pleased. Ordered: E&M of Est. Patient Low 20-29 Min 44668 Urnls Dip Stick Auto w/o Microscopy POC 07896 2. BPH (benign prostatic hyperplasia) (N40.0: Benign prostatic hyperplasia without lower urinary tract symptoms) IPSS 2 QOL 0 Pt is currently taking no bladder/prostate medication and is highly satisfied with overall symptom control. No indication for treatment at this time. Continue to monitor. Ordered: E&M of Est. Patient Low 20-29 Min 32768 Urnls Dip Stick Auto w/o Microscopy POC 01373 3. Prostate cancer screening (Z12.5: Encounter for screening for malignant neoplasm of prostate) PSA 12/13/22 - 0.29 12/2023 - 0.64 Pt to continue monitoring annually w PCP Ordered: E&M of Est. Patient Low 20-29 Min 11606 4. ED (erectile dysfunction) (N52.9: Male erectile dysfunction, unspecified) LM 18. has Viagra from other provider. works well but causes side effects, better if splits in half. Ordered: E&M of Est. Patient Low 20-29 Min 71939 Offered continued scheduled follow up with our clinic vs following up PRN. Pt prefers the latter. Follow-up With When Contact Information MAGALIE SANDOVAL, AUDREY Edwards, URL Only if needed [address] [place] [address] [employer] (1) Additional Instructions: Patient Education Benign Prostatic Hyperplasia Problem List/Past Medical History Ongoing Aspirin long-term use BPH (benign prostatic hyperplasia) ED (erectile dysfunction) HIV positive Hydrocele Hyperlipidemia Hypertension Prostate cancer screening Historical No qualifying data Procedure/Surgical History Hydrocelectomy (10/11/2023), None. Medications efavirenz/emtricitabin e/tenofovir 600 mg-200 mg-300 mg oral tablet hydrochlorothiazide-li sinopril 25 mg-20 mg Tab simvastatin 40 mg Tab Allergies penicillin (Rash) sulfa drugs (Rash) Social History Tobacco Former smoker, quit more than 30 days ago Tobacco Use:. Never Smokeless Tobacco Use:. Cigarettes, Household tobacco concerns: No. Yes, 06/05/2024 Family History Family history is negative Immunizations Vaccine Date Status influenza virus vaccine, inactivated 08/19/2023 Recorded influenza virus vaccine, inactivated 07/14/2022 Recorded SARS-CoV-2 (COVID-19) mRNA-1273 vaccine 09/03/2021 Recorded influenza virus vaccine, inactivated 07/11/2021 Recorded SARS-CoV-2 (COVID-19) mRNA-1273 vaccine 01/13/2021 Recorded SARS-CoV-2 (COVID-19) mRNA-1273 vaccine 12/14/2020 Recorded influenza virus vaccine, inactivated 07/10/2020 Recorded influenza virus vaccine, inactivated 07/20/2019 Recorded influenza virus vaccine, inactivated 06/21/2018 Recorded influenza virus vaccine, inactivated 07/04/2017 Recorded influenza virus vaccine, inactivated 07/12/2016 Recorded influenza virus vaccine, inactivated 07/14/2015 Recorded influenza virus vaccine, inactivated 08/08/2013 Recorded Lab Results Ambulatory Point of Care Results Bilirubin Urine Dipstick: (more content not included)... Normal [facility] Comment on above: Result Comment: Elec tronically Signed By: AUDREY MEJIAS PA-C.br\Date and Time Signed: 06/05/24 12:10 EDT Patient Educationon 12-31-19 Patient Education Urology Hydrocele, Adult A hydrocele is a collection of fluid in the loose pouch of skin that holds the testicles (scrotum). It can occur in one or both testicles. This may happen because: ? The amount of fluid produced in the scrotum is not absorbed by the rest of the body. ? Fluid from the abdomen fills the scrotum. [...] causes? A hydrocele may be caused by: ? An injury to the scrotum. ? An infection. ? Decreased blood flow to the scrotum. ? Twisting of a testicle (testicular torsion). ? A defect. ? A tumor or cancer of the testicle. Sometimes, the cause is not known. What are the signs or symptoms? A hydrocele feels like a water-filled balloon. It may also feel heavy. Other symptoms include: ? Swelling of the scrotum. The swelling may decrease when you lie down. You may also notice more swelling at night than in the morning. This is called a communicating hydrocele, in which the fluid in the scrotum goes back into the abdominal cavity when the position of the scrotum changes. ? Swelling of the groin. ? Mild discomfort in the scrotum. ? Pain. This can develop if the hydrocele was caused by infection or twisting. The larger the hydrocele, the more likely you are to have pain. Swelling may also cause pain. How is this diagnosed? This condition may be diagnosed based on a physical exam and your medical history. You may also have tests, including: ? Imaging tests, such as an ultrasound. ? A transillumination test. This test takes place in a dark room where a light is placed on the skin of the scrotum. Clear liquid will not impede the light and the scrotum will be illuminated. This helps a health care provider distinguish a hydrocele from a tumor. ? Blood or urine tests. How is this treated? Most hydroceles go away on their own. If you have no discomfort or pain, your health care provider may suggest close monitoring of your condition until the condition goes away or symptoms develop. This is called watch and wait or watchful waiting. If treatment is needed, it may include: ? Treating an underlying condition. This may include taking an antibiotic medicine to treat an infection. ? Having surgery to stop fluid from collecting in the scrotum. ? Having surgery to drain the fluid. Surgery may include: ? Hydrocelectomy. For this procedure, an incision is made in the scrotum to remove the fluid. ? Needle aspiration. A needle is used to drain fluid. However, the fluid buildup will come back quickly and may lead to an infection of the scrotum. This is rarely done. Follow these instructions at home: Medicines ? Take [id number]-yzhwbpt and prescription medicines only as told by your health care provider. ? If you were prescribed an antibiotic medicine, take it as told by your health care provider. Do not stop taking the antibiotic even if you start to feel better. General instructions ? Watch the hydrocele for any changes. ? Keep all follow-up visits. This is important. Contact a health care provider if: ? You notice any changes in the hydrocele. ? The swelling in your scrotum or groin gets worse. ? The hydrocele becomes red, firm, painful, or tender to the touch. ? You have a fever. Get help right away if you: ? Develop a lot of pain or your pain becomes worse. ? Have chills. ? Have a high fever. Summary ? A hydrocele is a collection of fluid in the loose pouch of skin that holds the testicles (scrotum). ? A hydrocele can cause swelling, discomfort, and pain. ? In adults, the cause of a hydrocele may not be known. However, it is sometimes caused by an infection or the twisting of a testicle. ? Hydroceles often go away on their own. If a hydrocele causes pain, treating the underlying cause may be needed to ease the pain. This information is not intended to replace advice given to you by your health care provider. Make sure you discuss any questions you have with your health care provider. Document Revised: 05/04/2022 Document Reviewed: 05/04/2022 [employer] Patient Education ? 2022 [employer]. [facility] Urology Office/Clinic Noteon 12-31-2023 Urology Office/Clinic Note Chief Complaint hydrocele right (Hydrocelectomy done 10/2023) HPI Staff 2 month f/u for hydrocele Dx: hydrocele (right hydrocelectomy 10/11/23), BPH and longterm aspirin use. Pt states he is still wearing his scrotal support daily and is not having any pain. Dysuria: no Incomplete bladder emptying: no Hematuria: no Frequency: no Urgency: no Nocturia: 0-1x Stream: good steady Leaking: no Post void dripping: no Wearing pads/ Depends: no Urge incontinence: no Stress incontinence: no Incontinence without Sensory Awareness: no Abdominal pain: no Flank pain: no Sexual complaints: no History of Present Illness Tests reviewed: reviewed UA I have reviewed the previous health record information and history for this patient from Dr. Spangler. I have reviewed and verified the staff HPI to be accurate for this encounter. Review of Systems PHQ Score Initial Depression Screen Score: 0 SCORE ROS - Provider Constitutional: denies weight loss, denies hot flashes. Eyes: denies eye problems. Gastrointestinal: denies nausea, denies vomiting. Cardiovascular: denies chest pain or angina. Integumentary: no dryness Musculoskeletal: denies musculoskeletal symptoms. ENMT: denies otolaryngeal symptoms. Respiratory: no shortness of breath. Heme/Lymph: denies easy bleeding tendency, denies easy bruising tendency. Psychiatric: no confusion, no anxiety. Genitourinary: See HPI. Physical Exam Vitals & Measurements T: 37 ?C(Temporal Artery) HR: 65(Peripheral) RR: 16 BP: 115/65 HT: 65 in HT: 165 cm WT: 69.4 kg WT: 152.68 lb BMI: 25.49 General Appearance: alert, no distress, well nourished, well developed male. Genitourinary: normal scrotum, abnormal R is minimally enlarged but still a bit indurated. testes, normal urethra, normal epididymis, normal vas deferens/spermatic cord. Flank Pain: none. Bladder: nonpalpable. Assessment/Plan 1. Hydrocele (N43.3: Hydrocele, unspecified) Scrotal US 05/22/23 NOMS - bilateral fluid surrounding testicles, measuring 12.2 x 10.5 x 6.7 cm on R and 8.3 x 2.8 x 3.5 cm on L. S/p R hydrocelectomy 10/11/23 - Path shows benign fibromembranous tissue with mild chronic inflammation. Continues wearing scrotal support. Swelling has subsided significantly. still with some induration throughout. Able to sit without any discomfort. Recommended pt to continue to wear scrotal support. 2. BPH (benign prostatic hyperplasia) (N40.0: Benign prostatic hyperplasia without lower urinary tract symptoms) PSA 12/13/22 - 0.29 UA today negative for blood and infection. Not currently taking any BPH meds. Not voicing any urinary habit complaints. Follow-up With When Contact Information JOSIE VELASQUEZ, George Hansen, URL [facility] [address], [place] [address] [phone] Additional Instructions: 4 mos (no labs) Patient Education Hydrocele, Adult I, Liliam Flanagan, personally scribed for Dr. Spangler on 12/31/2023 13:51:20. . Documentation recorded by the Liliam zhong, accurately reflects the services(s) I performed and decisions made by me. Authenticated by Dr. Spangler on 12/31/2023 13:53:23. Problem List/Past Medical History Ongoing Aspirin long-term use BPH (benign prostatic hyperplasia) HIV positive Hydrocele Hyperlipidemia Hypertension Historical No qualifying data Procedure/Surgical History Hydrocelectomy (10/11/2023), None. Medications efavirenz/emtricitabin e/tenofovir 600 mg-200 mg-300 mg oral tablet hydrochlorothiazide-li sinopril 25 mg-20 mg Tab simvastatin 40 mg Tab Allergies penicillin (Rash) sulfa drugs (Rash) Social History Tobacco Former smoker, quit more than 30 days ago Tobacco Use:. Never Smokeless Tobacco Use:. Cigarettes, Household tobacco concerns: No. Yes, 12/31/2023 Family History Family history is negative Immunizations Vaccine Date Status influenza virus vaccine, inactivated 08/19/2023 Recorded influenza virus vaccine, inactivated 07/14/2022 Recorded SARS-CoV-2 (COVID-19) mRNA-1273 vaccine 09/03/2021 Recorded influenza virus vaccine, inactivated 07/11/2021 Recorded SARS-CoV-2 (COVID-19) mRNA-1273 vaccine 01/13/2021 Recorded SARS-CoV-2 (COVID-19) mRNA-1273 vaccine 12/14/2020 Recorded influenza virus vaccine, inactivated 07/10/2020 Recorded influenza virus vaccine, inactivated 07/20/2019 Recorded influenza virus vaccine, inactivated 06/21/2018 Recorded influenza virus vaccine, inactivated 07/04/2017 Recorded influenza virus vaccine, inactivated 07/12/2016 Recorded influenza virus vaccine, inactivated 07/14/2015 Recorded influenza virus vaccine, inactivated 08/08/2013 Recorded Lab Results Ambulatory Point of Care Results Bilirubin Urine Dipstick: Negative (12/31/23 13:16:00) Blood Urine Dipstick: Negative (12/31/23 13:16:00) Glucose Urine Dipstick: Negative (12/31/23 13:16:00) Ketones Urine Dipstick: Negative (12/31/23 13:16:00) Leukocyte (more content not included)... Normal [facility] Comment on above: Result Comment: Elec tronically Signed By: George SPANGLER MD\.br\Date and Time Signed: 12/31/23 13:54 EDT\.br\Electronically Co-Signed By: Liliam Flanagan.br\Date and Time Co-Signed: 12/31/23 13:51 EDT Patient Educationon 11-05-19 Patient Education Urology Hydrocelectomy, Adult, Care After [...] these instructions at home: Medicines ? Take vbpa-npi-udqoxan and prescription medicines only as told by your health care provider. ? Ask your health care provider if the medicine prescribed to you: ? Requires you to avoid driving or using machinery. ? Can cause constipation. You may need to take these actions to prevent or treat constipation: ? Drink enough fluid to keep your urine pale yellow. ? Take vtxu-uiw-zwnrldo or prescription medicines. ? Eat foods that [...] and water are not available, use hand prepress specialist. ? Change your dressing as told by [...] says th (more content not included)... Normal [facility] Urology Office/Clinic Noteon 11-05-2023 Urology Office/Clinic Note Chief Complaint S/P Hydrocelectomy HPI Staff F/u to right Hydrocelectomy done 10/11/23. Dx: Hydrocele, BPH and longterm use of aspirin. Denies post op complications. Still has some swelling. Denies current pain. Denies urinary complications. No concerns at this time. History of Present Illness Tests reviewed: reviewed UA, path report I have reviewed the previous health record information and history for this patient from Dr. Spangler. I have reviewed and verified the staff HPI to be accurate for this encounter. Review of Systems PHQ Score Initial Depression Screen Score: 0 SCORE ROS - Provider Constitutional: denies weight loss, denies hot flashes. Eyes: denies eye problems. Gastrointestinal: denies nausea, denies vomiting. Cardiovascular: denies chest pain or angina. Integumentary: no dryness Musculoskeletal: denies musculoskeletal symptoms. ENMT: denies otolaryngeal symptoms. Respiratory: no shortness of breath. Heme/Lymph: denies easy bleeding tendency, denies easy bruising tendency. Psychiatric: no confusion, no anxiety. Genitourinary: See HPI. Physical Exam Vitals & Measurements HT: 65 in HT: 165 cm WT: 69.8 kg WT: 153.56 lb BMI: 25.64 General Appearance: alert, no distress, well nourished, well developed male. Genitourinary: abnormalR with mod edema/?hematoma scrotum, normal testes, normal urethra, normal epididymis, normal vas deferens/spermatic cord. Flank Pain: none. Bladder: nonpalpable. Assessment/Plan 1. Hydrocele (N43.3: Hydrocele, unspecified) Scrotal US 05/22/23 NOMS - bilateral fluid surrounding testicles, measuring 12.2 x 10.5 x 6.7 cm on R and 8.3 x 2.8 x 3.5 cm on L. [1] Reports he has had hydroceles for about a year. Has been given abx for swelling which has helped to decrease size, felt size was completely back to normal after abx course. [2] S/p R hydrocelectomy 10/11/23 - Path shows benign fibromembranous tissue with mild chronic inflammation. Denies any PO complications or pain. Reports he has some swelling but improved from prior. Discussed he is likely still healing. Per physical exam today, still has some fluid and swelling and stitches are intact. States he has been wearing scrotal support. Recommended pt to continue this. The pathology report was reviewed with the patient in detail today. There is no evidence of malignancy and no further evaluation of the tissue removed is planned. All questions were answered and the report discussed in terms that the patient could understand. -Cont wearing scrotal support -F/u in 2 mos 2. BPH (benign prostatic hyperplasia) (N40.0: Benign prostatic hyperplasia without lower urinary tract symptoms) Not currently taking any BPH meds. UA today negative for blood and infection. Denies any bothersome urinary habits. PSA 12/13/22 - 0.29 [3] 3. Aspirin long-term use (Z79.82: alf (current) use of aspirin) Elevated risk for periop complications. Had significant oozing at time of hydrocelectomy. States he stopped taking aspirin a few days prior and has not yet resumed this. Advised pt to consider stopping this as risks outweigh benefits. Follow-up With When Contact Information JOSIE VELASQUEZ, George Hansen, URL [facility] [address], [place] [address]- [phone] Additional Instructions: 2 mos to evaluate PO hydrocele Patient Education Hydrocelectomy, Adult, Care After Liliam Moran, personally scribed for Dr. Spangler on 11/05/2023 11:12:59. . Documentation recorded by the scribe, Liliam Flanagan, accurately reflects the services(s) I performed and decisions made by me. Authenticated by Dr. Spangler on 11/05/2023 11:15:56. Problem List/Past Medical History Ongoing Aspirin long-term use BPH (benign prostatic hyperplasia) HIV positive Hydrocele Hyperlipidemia Hypertension Historical No qualifying data Procedure/Surgical History Hydrocelectomy (10/11/2023), None. Medications aspirin 81 mg oral capsule, Oral, q24hr efavirenz/emtricitabin e/tenofovir 600 mg-200 mg-300 mg oral tablet hydrochlorothiazide-li sinopril 25 mg-20 mg Tab simvastatin 40 mg Tab Allergies penicillin (Rash) sulfa drugs (Rash) Social History Tobacco Former smoker, quit more than 30 days ago Tobacco Use:. Never Smokeless Tobacco Use:. Cigarettes, Household tobacco concerns: No. Yes, 11/05/2023 Family History Family history is negative Immunizations Vaccine Date Status influenza virus vaccine, inactivated 08/19/2023 Recorded influenza virus vaccine, inactivated 07/14/2022 Recorded SARS-CoV-2 (COVID-19) mRNA-1273 vaccine 09/03/2021 Recorded influenza virus vaccine, inactivated 07/11/2021 Recorded SARS-CoV-2 (COVID-19) mRNA-1273 vaccine 01/13/2021 Recorded SARS-CoV-2 (COVID-19) mRNA-1273 vaccine 12/14/2020 Recorded influenza virus vaccine, inactivated 07/10/2020 Recorded influenza virus vaccine, inactivated 07/20/2019 Recorded influenza virus vacc (more content not included)... [facility] Comment on above: Result Comment: Elec tronically Signed By: George SPANGLER MD\.br\Date and Time Signed: 11/05/23 11:16 EST\.br\Electronically Co-Signed By: Liliam Flanagan\.br\Date and Time Co-Signed: 11/05/23 11:13 EST Pre-Certification Formon Pre-Certification Form [id number] [facility] Pathology Noteon 10-16-2023 Pathology Note [id number]#1.0 0TIFF [facility] OARRS Reporton 10-12-2023 OARRS Report [id number]#1.0 0TIFF [facility] Operative Reporton Operative Report [id number]#1.00 TIFF [facility] Insurance Correspondenceon 0 10-08-2023 Insurance Correspondence [id number] .00TIFF [facility] ECG 12-Leadon 09-28-2023 ECG 12-Lead [id number]#1.0 0TIFF [facility] Lab Reportson 09-27-2023 Lab Reports [id number]#1.0 0TIFF [facility] Lab Reports [id number]#1.0 0TIFF [facility] Consent for Procedure/Surger yon 08-13-2023 Consent for Procedure/Surgery [id number]#1. 00TIFF [facility] Physician Referralon 023 Physician Referral [id number]#1.0 0TIFF [facility] Screenson 08-13-2023 Screens [id number]#1. 00TIFF [facility] Ambulatory Visit Summaryon 10-10-2022 Ambulatory Visit Summary KRAIG FLOREZ JR :1960 Visit Date:08/10/2023 Ambulatory Visit Instructions Your Diagnosis Hydrocele BPH (benign prostatic hyperplasia) Aspirin long-term use Tests Performed Urnls Dip Stick Auto w/o Microscopy POC 87291 Your Care Team Attending Physician - George SPANGLER MD Primary Care Physician - JOVANNI Mesa Referring Physician - DEVONTE HASTINGS ResidentJOVANNI This Is Your Medications List Contact prescribing physician if questions or concerns aspirin (aspirin 81 mg oral capsule) efavirenz/emtricitabin e/tenofovir (efavirenz/emtricitabi ne/tenofovir 600 mg-200 mg-300 mg oral tablet) hydrochlorothiazide-li sinopril (hydrochlorothiazide-l isinopril 25 mg-20 mg Tab) simvastatin (simvastatin 40 mg Tab) Procedures Performed None. Discharge Vitals Heart Rate (Peripheral) 62 Respiratory Rate 16 Blood Pressure 121/69 Height 165 cm Height 65 in Weight 68.2 kg Weight 150.04 lb BMI 25.05 What to do next You Need to Schedule the Following Appointments Follow Up with JOSIE VELASQUEZ, ELIZABETH Smart When: Comments: vini Hansen hydrocelectomy Where: [facility] [address], [place] [address]- [phone] Medications What How Much When Instructions Unchanged aspirin (aspirin 81 mg oral capsule) Every 24 hours Contact prescribing physician if questions or concerns Unchanged efavirenz/ emtricitabine/ tenofovir (efavirenz/ emtricitabine/ tenofovir 600 mg-200 mg-300 mg oral tablet) 30 EA, 0 Refill(s), TAKE 1 TABLET BY MOUTH EVERY DAY Contact prescribing physician if questions or concerns Unchanged hydrochlorothiazide-li sinopril (hydrochlorothiazide-l isinopril 25 mg-20 mg Tab) 90 EA, 0 Refill(s), TAKE 1 TABLET BY MOUTH IN THE MORNING Contact prescribing physician if questions or concerns Unchanged simvastatin (simvastatin 40 mg Tab) 90 EA, 0 Refill(s), TAKE 1 TABLET BY MOUTH EVERY NIGHT AT BEDTIME Contact prescribing physician if questions or concerns Test Results Urnls Dip Stick Auto w/o Microscopy POC 56738 (08/10/2023) Bilirubin Urine Dipstick - Negative Blood Urine Dipstick - Negative Glucose Urine Dipstick - Negative Ketones Urine Dipstick - Negative Leukocytes Urine Dipstick - Negative Nitrite Urine Dipstick - Negative Protein Urine Dipstick - Negative Specific Taylor Urine Dipstick - 1.015 Urine Appearance Urine [...] these instructions at home: Medicines ? Take ickr-awi-rylqgzs and prescription medicines only as told by your health care provider. ? Ask your health care provider if the medicine prescribed to you: ? Requires you to avoid driving or using machinery. ? Can cause constipation. You may need to take these actions to prevent or treat constipation: ? Drink enough fluid to keep your urine pale yellow. ? Take zydw-qyw-mkfumnl or prescription medicines. ? Eat foods that [...] and water are not available, use hand prepress specialist. ? Change your dressing as told by your health care provider. ? Leave stitches (sutures), skin glue, or (more content not included)... Normal [facility] Patient Educationon 08-10-20 Patient Education Urology Hydrocelectomy, [...] these instructions at home: Medicines ? Take hdyb-qzd-ghaxlyp and prescription medicines only as told by your health care provider. ? Ask your health care provider if the medicine prescribed to you: ? Requires you to avoid driving or using machinery. ? Can cause constipation. You may need to take these actions to prevent or treat constipation: ? Drink enough fluid to keep your urine pale yellow. ? Take nuls-uor-xemkygf or prescription medicines. ? Eat foods that [...] and water are not available, use hand prepress specialist. ? Change your dressing as told by [...] says th (more content not included)... Normal [facility] Vital Signs Date Time Vital Sign Value Performing Clinician Hamilton barlow 06-05-2024 11:44-0400 Blood Pressure Location AUDREY MEJIAS [facility] 06-05-2024 11:44-0400 Diastolic blood pressure 61 mm[Hg] AUDREY MAGALIE [facility] 06-05-2024 11:44-0400 Heart rate 59 /min AUDREY MAGALIE [facility] 06-05-2024 11:44-0400 Respiratory rate 16 /min AUDREY MAGALIE [facility] 06-05-2024 11:44-0400 Systolic blood pressure 105 mm[Hg] AUDREY MAGALIE [facility] 12-31-2023 13:07-0400 Blood Pressure Location George SPANGLER [facility] 12-31-2023 13:07-0400 Body temperature 98.6 [degF] George SPANGLER [facility] 12-31-2023 13:07-0400 Diastolic blood pressure 65 mm[Hg] George SPANGLER [facility] 12-31-2023 13:07-0400 Heart rate 65 /min George SPANGLER [facility] 12-31-2023 13:07-0400 Respiratory rate 16 /min George SPANGLER [facility] 12-31-2023 13:07-0400 Systolic blood pressure 115 mm[Hg] George SPANGLER [facility] 08-10-2023 09:56-0500 Blood Pressure Location George SPANGLER [facility] 08-10-2023 09:56-0500 Diastolic blood pressure 69 mm[Hg] George SPANGLER [facility] 08-10-2023 09:56-0500 Heart rate 62 /min George SPANGLER [facility] 08-10-2023 09:56-0500 Respiratory rate 16 /min George SPANGLER [facility] 08-10-2023 09:56-0500 Systolic blood pressure 121 mm[Hg] George SPANGLER [facility] Encounters Encounter Date Encounter Type Care Provider Facility Start: 06-16-2024 End: 06-16-2024 ambulatory MITZI RICH Not Available Start: 06-05-2024 End: 06-05-2024 ambulatory AUDREY MEJIAS Facility:[facility] Start: 06-05-2024 End: 06-05-2024 Patient encounter procedure AUDREY MEJIAS [facility] Start: 12-31-2023 End: 12-31-2023 ambulatory George SPANGLER Facility:[facility] Start: 12-31-2023 End: 12-31-2023 Patient encounter procedure George SPANGLER [facility] Start: 12-26-2023 End: 12-26-2023 ambulatory JOVANNI GARCIA Not Available Start: 11-05-2023 End: 11-05-2023 ambulatory George SPANGLER Facility:[facility] Start: 11-05-2023 End: 11-05-2023 Patient encounter procedure George SPANGLER [facility] Start: 10-11-2023 End: 10-11-2023 ambulatory George SPANGLER Facility::[id number] Start: 08-10-2023 End: 08-10-2023 ambulatory JOVANNI GARCIA Facility:[facility] Start: 08-10-2023 End: 08-10-2023 Patient encounter procedure George SPANGLER [facility] Procedures Date Procedure Procedure Detail Performing Clinician Start: 10-11-2023 Hydrocelectomy George SPANGLER None (qualifier value) Clari SPANGLER Immunizations Immunization Date Immunization Notes Care Provider [facility] 08-19-2023 influenza virus vaccine, unspecified formulation George SPANGLER [facility] 07-14-2022 influenza virus vaccine, unspecified formulation George SPANGLER [facility] 09-03-2021 SARS-CoV-2 (COVID-19 ) mRNA-1273 vaccine George SPANGLER [facility] 07-11-2021 influenza virus vaccine, unspecified formulation George SPANGLER [facility] 01-13-2021 SARS-CoV-2 (COVID-19 ) mRNA-1273 vaccine George [employer] [facility] 12-14-2020 SARS-CoV-2 (COVID-19 ) mRNA-1273 vaccine George SPANGLER [facility] 07-10-2020 influenza virus vaccine, unspecified formulation George SPANGLER [facility] 07-20-2019 influenza virus vaccine, unspecified formulation George SPANGLER [facility] 06-21-2018 influenza virus vaccine, unspecified formulation George SPANGLER [facility] 07-04-2017 influenza virus vaccine, unspecified formulation George SPANGLER [facility] 07-12-2016 influenza virus vaccine, unspecified formulation George SPANGLER [facility] 07-14-2015 influenza virus vaccine, unspecified formulation George SPANGLER [facility] 08-08-2013 influenza virus vaccine, unspecified formulation George SPANGLER [facility] Payers Date Payer Category Payer Medicare [id number] 2016 Unknown [id number] 1960 Unknown [id number] 2.16.8 [id number] 1960 Unknown [id number] 2.16.8 [id number] 1960 Unknown [id number] 2.16.8 [id number] 1960 Unknown [id number] 2.16.8 [id number] 1960 Unknown [id number] 2.16.8 [id number] 1960 Unknown [id number] 2.16.84 [id number] 1960 Unknown [id number] 2.16.84 [id number] Social History Date Type Detail Facility Start: 08-10-2023 End: 06-05-2024 Tobacco smoking status Ex-smoker (finding) [facility] Tobacco smoking status Never [facility] Sex Assigned At Male [facility] Functional Status Date Assessment Result Facility 06-05-2024 Functional Status N/A [facility] 12-31-2023 Functional Status N/A [facility] 11-05-2023 Functional Status N/A [facility] 08-10-2023 Functional Status N/A [facility] Clinical Notes 08-10-2023 to 06-05-2024 Note Date & Type Note Facility 06-05-2024 Hospital Discharge instructions Patient Education 06/05/2024 12:09:52 Benign Prostatic Hyperplasia Benign Prostatic Hyperplasia Benign prostatic hyperplasia (BPH) is an enlarged prostate gland that is caused by the normal aging process. The prostate may get bigger as a man gets older. The condition is not caused by cancer. The prostate is a walnut-sized gland that is involved in the production of semen. It is located in front of the rectum and below the bladder. The bladder stores urine. The urethra carries stored urine out of the body. An enlarged prostate can press on the urethra. This can make it harder to pass urine. The buildup of urine in the bladder can cause infection. Back pressure and infection may progress to bladder damage and kidney (renal) failure. What are the causes? This condition is part of the normal aging process. However, not all men develop problems from this condition. If the prostate enlarges away from the urethra, urine flow will not be blocked. If it enlarges toward the urethra and compresses it, there will be problems passing urine. What increases the risk? This condition is more likely to develop in men older than 50 years. What are the signs or symptoms? Symptoms of this condition include: Getting up often during the night to urinate. Needing to urinate frequently during the day. Difficulty starting urine flow. Decrease in size and strength of your urine stream. Leaking (dribbling) after urinating. Inability to pass urine. This needs immediate treatment. Inability to completely empty your bladder. Pain when you pass urine. This is more common if there is also an infection. Urinary tract infection (UTI). How is this diagnosed? This condition is diagnosed based on your medical history, a physical exam, and your symptoms. Tests will also be done, such as: A post-void bladder scan. This measures any amount of urine that may remain in your bladder after you finish urinating. A digital rectal exam. In a rectal exam, your health care provider checks your prostate by putting a lubricated, gloved finger into your rectum to feel the back of your prostate gland. This exam detects the size of your gland and any abnormal lumps or growths. An exam of your urine (urinalysis). A prostate specific antigen (PSA) screening. This is a blood test used to screen for prostate cancer. An ultrasound. This test uses sound waves to electronically produce a picture of your prostate gland. Your health care provider may refer you to a specialist in kidney and prostate diseases (urologist). How is this treated? Once symptoms begin, your health care provider will monitor your condition (active surveillance or watchful waiting). Treatment for this condition will depend on the severity of your condition. Treatment may include: Observation and yearly exams. This may be the only treatment needed if your condition and symptoms are mild. Medicines to relieve your symptoms, including: ?Medicines to shrink the prostate. ?Medicines to relax the muscle of the prostate. Surgery in severe cases. Surgery may include: ?Prostatectomy. In this procedure, the prostate tissue is removed completely through an open incision or with a laparoscope or robotics. ?Transurethral resection of the prostate (TURP). In this procedure, a tool is inserted through the opening at the tip of the penis (urethra). It is used to cut away tissue of the inner core of the prostate. The pieces are removed through the same opening of the penis. This removes the blockage. ?Transurethral incision (TUIP). In this procedure, small cuts are made in the prostate. This lessens the prostate's pressure on the urethra. ?Transurethral microwave thermotherapy (TUMT). This procedure uses microwaves to create heat. The heat destroys and removes a small amount of prostate tissue. ?Transurethral needle ablation (TUNA). This procedure uses radio frequencies to destroy and remove a small amount of prostate tissue. ?Interstitial laser coagulation (ILC). This procedure uses a laser to destroy and remove a small amount of prostate tissue. ?Transurethral electrovaporization (TUVP). This procedure uses electrodes to destroy and remove a small amount of prostate tissue. ?Prostatic urethral lift. This procedure inserts an implant to push the lobes of the prostate away from the urethra. Follow these instructions at home: Take vrpw-rlh-filxriq and prescription medicines only as told by your health care provider. Monitor your symptoms for any changes. Contact your health care provider with any changes. Avoid drinking large amounts of liquid before going to bed or out in public. Avoid or reduce how much caffeine or alcohol you drink. Give yourself time when you urinate. Keep all follow-up visits. This is important. Contact a health care provider if: You have unexplained back pain. Your symptoms do not get better with treatment. You develop side effects from the medicine you are taking. Your urine becomes very dark or has a bad smell. Your lower abdomen becomes distended and you have trouble passing urine. Get help right away if: You have a fever or chills. You suddenly cannot urinate. You feel light-headed or very dizzy, or you faint. There are large amounts of blood or clots in your urine. Your urinary problems become hard to manage. You develop moderate to severe low back or flank pain. The flank is the side of your body between the ribs and the hip. These symptoms may be an emergency. Get help right away. Call 911. Do not wait to see if the symptoms will go away. Do not drive yourself to the hospital. Summary Benign prostatic hyperplasia (BPH) is an enlarged prostate that is caused by the normal aging process. It is not caused by cancer. An enlarged prostate can press on the urethra. This can make it hard to pass urine. This condition is more likely to develop in men older than 50 years. Get help right away if you suddenly cannot urinate. This information is not intended to replace advice given to you by your health care provider. Make sure you discuss any questions you have with your health care provider. Document Revised: 04/05/2022 Document Reviewed: 04/05/2022 [employer] Patient Education 2023 [employer]. Follow Up Care 12/31/2023 13:53:59 With:AUDREY MEJIAS PA-C, URL Address: [address] [place] [address] Business (1) When: only if needed [facility] [employer] 06-05-2024 Note Patient Education Urology Benign Prostatic Hyperplasia Benign prostatic hyperplasia (BPH) is an enlarged prostate gland that is caused by the normal aging process. The prostate may get bigger as a man gets older. The condition is not caused by cancer. The prostate is a walnut-sized gland that is involved in the production of semen. It is located in front of the rectum and below the bladder. The bladder stores urine. The urethra carries stored urine out of the body. An enlarged prostate can press on the urethra. This can make it harder to pass urine. The buildup of urine in the bladder can cause infection. Back pressure and infection may progress to bladder damage and kidney (renal) failure. What are the causes? This condition is part of the normal aging process. However, not all men develop problems from this condition. If the prostate enlarges away from the urethra, urine flow will not be blocked. If it enlarges toward the urethra and compresses it, there will be problems passing urine. What increases the risk? This condition is more likely to develop in men older than 50 years. What are the signs or symptoms? Symptoms of this condition include: ? Getting up often during the night to urinate. ? Needing to urinate frequently during the day. ? Difficulty starting urine flow. ? Decrease in size and strength of your urine stream. ? Leaking (dribbling) after urinating. ? Inability to pass urine. This needs immediate treatment. ? Inability to completely empty your bladder. ? Pain when you pass urine. This is more common if there is also an infection. ? Urinary tract infection (UTI). How is this diagnosed? This condition is diagnosed based on your medical history, a physical exam, and your symptoms. Tests will also be done, such as: ? A post-void bladder scan. This measures any amount of urine that may remain in your bladder after you finish urinating. ? A digital rectal exam. In a rectal exam, your health care provider checks your prostate by putting a lubricated, gloved finger into your rectum to feel the back of your prostate gland. This exam detects the size of your gland and any abnormal lumps or growths. ? An exam of your urine (urinalysis). ? A prostate specific antigen (PSA) screening. This is a blood test used to screen for prostate cancer. ? An ultrasound. This test uses sound waves to electronically produce a picture of your prostate gland. Your health care provider may refer you to a specialist in kidney and prostate diseases (urologist). How is this treated? Once symptoms begin, your health care provider will monitor your condition (active surveillance or watchful waiting). Treatment for this condition will depend on the severity of your condition. Treatment may include: ? Observation and yearly exams. This may be the only treatment needed if your condition and symptoms are mild. ? Medicines to relieve your symptoms, including: ? Medicines to shrink the prostate. ? Medicines to relax the muscle of the prostate. ? Surgery in severe cases. Surgery may include: ? Prostatectomy. In this procedure, the prostate tissue is removed completely through an open incision or with a laparoscope or robotics. ? Transurethral resection of the prostate (TURP). In this procedure, a tool is inserted through the opening at the tip of the penis (urethra). It is used to cut away tissue of the inner core of the prostate. The pieces are removed through the same opening of the penis. This removes the blockage. ? Transurethral incision (TUIP). In this procedure, small cuts are made in the prostate. This lessens the prostate's pressure on the urethra. ? Transurethral microwave thermotherapy (TUMT). This procedure uses microwaves to create heat. The heat destroys and removes a small amount of prostate tissue. ? Transurethral needle ablation (TUNA). This procedure uses radio frequencies to destroy and remove a small amount of prostate tissue. ? Interstitial laser coagulation (ILC). This procedure uses a laser to destroy and remove a small amount of prostate tissue. ? Transurethral electrovaporization (TUVP). This procedure uses electrodes to destroy and remove a small amount of prostate tissue. ? Prostatic urethral lift. This procedure inserts an implant to push the lobes of the prostate away from the urethra. Follow these instructions at home: ? Take hjgk-jfc-oxjbzzk and prescription medicines only as told by your health care provider. ? Monitor your symptoms for any changes. Contact your health care provider with any changes. ? Avoid drinking large amounts of liquid before going to bed or out in public. ? Avoid or reduce how much caffeine or alcohol you drink. ? Give yourself time when you urinate. ? Keep all follow-up visits. This is important. Contact a health care provider if: ? You have unexplained back pain. ? Your symptoms do not get better with treatment. ? You develop side effec (more content not included)... [facility] 12-31-2023 Hospital Discharge instructions Patient Education 12/31/2023 13:51:12 Hydrocele, Adult Hydrocele, Adult A hydrocele is [...] Follow these instructions at home: Medicines Take vjmv-xiy-pjyihln and prescription medicines only as told by [...] provider. Document Revised: 05/04/2022 Document Reviewed: 05/04/2022 [employer] Patient Education 2022 [employer]. Follow Up Care 11/05/2023 11:16:02 With:JOSIE VELASQUEZ, George Hansen, URL Address: [facility] [address] , [place] [address]- [phone] When: Unknown Comments:4 mos (no labs) [facility] Peter 11-05-2023 Hospital Discharge instructions Patient Education 11/05/2023 11:05:59 Hydrocelectomy, Adult, Care After Hydrocelectomy, Adult, Care [...] Follow these instructions at home: Medicines Take dzju-iaa-nwpiubx and prescription medicines only as told by your health care provider. Ask your health care provider if the medicine prescribed to you: ?Requires you to avoid driving or using machinery. ?Can cause constipation. You may need to take these actions to prevent or treat constipation: ?Drink enough fluid to keep your urine pale yellow. ?Take tamr-san-udkcmhq or prescription medicines. ?Eat foods that are [...] and water are not available, use hand prepress specialist. ?Change your dressing as told by your [...] provider. Document Revised: 05/04/2022 Document Reviewed: 05/04/2022 [employer] Patient Education 2022 [employer]. Follow Up Care 08/10/2023 10:33:30 With:JOSIE VELASQUEZ, George Hansen, URL Address: [facility] [address] , [place] [address]- [phone] When: Unknown Comments:2 mos to evaluate PO hydrocele [facility] [place] 08-10-2023 Hospital Discharge instructions Patient Education 08/10/2023 [...] Follow these instructions at home: Medicines Take ndvc-iha-vfidhub and prescription medicines only as told by your health care provider. Ask your health care provider if the medicine prescribed to you: ?Requires you to avoid driving or using machinery. ?Can cause constipation. You may need to take these actions to prevent or treat constipation: ?Drink enough fluid to keep your urine pale yellow. ?Take iuyz-eap-iqexlxr or prescription medicines. ?Eat foods that are [...] and water are not available, use hand prepress specialist. ?Change your dressing as told by your [...] provider. Document Revised: 05/04/2022 Document Reviewed: 05/04/2022 [employer] Patient Education 2022 [employer]. 08/10/2023 10:24:16 Hydrocelectomy, Adult Hydrocelectomy, Adult A [...] including vitamins, herbs, eye drops, creams, and ijjz-usi-insdtzd medicines. Any problems you or family members [...] provider tells you to take them. Taking lywp-ojw-lwhbhvc medicines, vitamins, herbs, and supplements. Surgery safety [...] provider. Document Revised: 05/04/2022 Document Reviewed: 05/04/2022 [employer] Patient Education 2022 [employer]. 08/10/2023 10:19:15 Hydrocele, Adult Hydrocele, Adult A [...] Follow these instructions at home: Medicines Take cgaf-rok-yztswgb and prescription medicines only as told by [...] provider. Document Revised: 05/04/2022 Document Reviewed: 05/04/2022 [employer] Patient Education 2022 [employer]. Follow Up Care 05/16/2023 15:44:22 With:JOSIE VELASQUEZ, George Hansen, URL Address: [facility] [address] , [place] [address]- [phone] When: Unknown Comments:vini Hansen hydrocelectomy [facility] 08-10-2023 Note Chief Complaint Referral *Hydrocele HPI Staff Referral for hydrocele by Dr. Jovanni Garcia. Pt is a new pt. Never before [...] Testicular Cancer. Brother. Denies urinary complaints. PSA 3/15/23- 0.29 Scrotal US 05/22/23 History of Present [...] M new pt referred by Dr. Jovanni Garcia for hydrocele. 1. Hydrocele (N43.3: Hydrocele, unspecified) [...] - 0.29 3. 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 Follow-up With When Contact Information JOSIE VELASQUEZ, George Hansen, [facility] [address] [place] [address]- [phone] Additional Instructions: vini Hansen hydrocelectomy Patient Education Hydrocelectomy, Adult, Care After Hydrocelectomy, Adult Hydrocele, Adult ILiliam, personally scribed for Dr. Spangler on 08/10/2023 10:27:03. . Documentation recorded by the scribe, Liliam Flanagan, accurately reflects the services(s) I performed and decisions made by me. Authenticated by Dr. Spangler on 08/10/2023 10:29:19. Problem List/Past Medical History Ongoing Aspirin long-term use BPH (benign prostatic hyperplasia) HIV positive Hydrocele Hyperlipidemia Hypertension Historical No qualifying data Procedure/Surg (more content not included)... [facility] Comment on above: Result Comment: Elec tronically Signed By: George SPANGLER MD\.br\Date and Time Signed: 08/10/23 10:29 EST\.br\Electronically Co-Signed By: Liliam Flanagan\.br\Date and Time Co-Signed: 08/10/23 10:27 EST Evaluation + Plan note Future Appointments Appointment Date:11/05/2023 09:45:00 AM Scheduled Provider:George SPANGLER MD Location:[facility] Appointment Type:URO Office Visit [facility] Evaluation + Plan note Future Appointments Appointment Date:12/31/2023 12:15:00 PM Scheduled Provider:George SPANGLER MD Location:[facility] Appointment Type:URO Office Visit [facility] Evaluation + Plan note Future Appointments Appointment Date:05/19/2024 09:45:00 AM Scheduled Provider:George SPANGLER MD Location:[facility] Appointment Type:URO Office Visit [facility] Hospital course Narrative No data available for this section [facility] Progress note No data available for this section [facility] Summary Purpose Family History No Family History Records Found Advance Directives No Advanced Directives Records FoundNo Advanced Directives Records Found Additional Source Comments Patient Care team informatio n (unrecognized section and content) Personnel Name: DEVONTE DO Maharaj JOVANNI Patino Address: Address: [address] [place], [place] [address] [address] Personnel Name: FLORENCECORDELIA DO MaharajJOVANNI Address: Address: [address] [place], [place] [address] Personnel Name: JOVANNI [place] Address: Address: [address] [place], [place] [address] [address]- Personnel Name: JOVANNI GARCIA DO Address: Address: [place] [id number]- (unrecognized sect ion and content) No Status Records FoundNo Status Records Found INFORMATION SOURCE (unrecogn ized section and content) DATE CREATED AUTHOR 06/06/2024 [facility] DATE CREATED AUTHOR AUTHOR'S NATALIYA ATION 06/17/2024 [facility] EPIC FOR RECORDS PERTAINING TO PATIENTS WHO ARE [...] BE BASED ON THE PRIMARY CLINICAL RECORDS. [employer] provides no warranty or guarantee of the accuracy or completeness of information in this document.
== END 2024-07-01 14:35 | disposition home or self-care (01) ==
LOC: PST 14:35
PROVIDERS: Family Provider Family Medicine; Visit Provider Surgery
DX: Z01.818 Encounter for other preprocedural examination (principal); Z12.11 Encounter for screening for malignant neoplasm of colon

== ENCOUNTER 2024-07-08 08:02 | Day surgery (SDC) | payer OTHER, SELFPAY ==
[2024-07-08 08:15] VITALS: BP 131/76; PULSE 51; TEMP 36.2; O2SAT 100; BMI 25.4
--- OUTSIDE RECORDS SUMMARY | 2024-07-08 08:19 | XMS_ITS | CCD ---
Author Organization [facility] Care Team Providers Care Pediatric Occupational Therapist Name Role Phone JOVANNI GARCIA Primary Care Physician [phone] JOVANNI GARCIA Referring Unavailable George SPANGLER Attending Unavailable AUDREY MEJIAS Attending Unavailable George SPANGLER Attending Unavailable George SPANGLER Attending Unavailable George SPANGLER Attending Unavailable JOVANNI GARCIA Attending Unavailable MITZI RICH Attending Unavailable Allergies Allergy Classification Reported Allergen(s) Allergy Type Date of Onset Reaction(s) Facility (5 sources) Penicillin; Translations: [penicillin] Drug Allergy Eruption of skin (disorder) [facility] (5 sources) Sulfonamides (Antibiotic); Translations: [sulfa drugs] Drug allergy Eruption of skin (disorder) [facility] Medications Current Medications Medication Drug [...] sources) Long-term current use of aspirin; Translations: [intermediate frame tender (current) use of aspirin] Onset: 08-10-2023 Episodic [...] E&M of Est. Patient Low 20-29 Min 15967 Urnls Dip Stick Auto w/o Microscopy POC 57880 2. BPH (benign prostatic hyperplasia) (N40.0: Benign prostatic hyperplasia without lower urinary tract symptoms) IPSS 2 QOL 0 Pt is currently taking no bladder/prostate medication and is highly satisfied with overall symptom control. No indication for treatment at this time. Continue to monitor. Ordered: E&M of Est. Patient Low 20-29 Min 79546 Urnls Dip Stick Auto w/o Microscopy POC 14893 3. Prostate cancer screening (Z12.5: Encounter for screening for malignant neoplasm of prostate) PSA 12/13/22 - 0.29 12/2023 - 0.64 Pt to continue monitoring annually w PCP Ordered: E&M of Est. Patient Low 20-29 Min 50502 4. ED (erectile dysfunction) (N52.9: Male erectile dysfunction, unspecified) LM 18. has Viagra from other provider. works well but causes side effects, better if splits in half. Ordered: E&M of Est. Patient Low 20-29 Min 23770 Offered continued scheduled follow up with our clinic vs following up PRN. Pt prefers the latter. Follow-up With When Contact Information MAGALIE SANDOVAL, AUDREY Edwards, URL Only if needed [address] [place] [address] [employer] (1) Additional Instructions: Patient Education Benign Prostatic [...] Urine Dipstick: (more content not included)... Normal [facility] Comment on above: Result Comment: Elec tronically [...] these instructions at home: Medicines ? Take yufn-vkb-mybojxm and prescription medicines only as told by [...] provider. Document Revised: 05/04/2022 Document Reviewed: 05/04/2022 [employer] Patient Education ? 2022 ideeli. [facility] Urology Office/Clinic Noteon 12-31-2023 Urology Office/Clinic Note Chief Complaint hydrocele right (Hydrocelectomy done 10/2023) HPI Staff 2 month f/u for hydrocele Dx: hydrocele (right hydrocelectomy 10/11/23), BPH and group home aspirin use. Pt states he is still [...] [facility] [address], [place] [address] [phone] Additional Instructions: 4 mos (no labs) Patient [...] 13:16:00) Leukocyte (more content not included)... Normal [facility] Comment on above: Result Comment: Elec tronically [...] these instructions at home: Medicines ? Take kwol-qcn-ppbhesn and prescription medicines only as told by your health care provider. ? Ask your health care provider if the medicine prescribed to you: ? Requires you to avoid driving or using machinery. ? Can cause constipation. You may need to take these actions to prevent or treat constipation: ? Drink enough fluid to keep your urine pale yellow. ? Take sodp-arv-kzfxsgk or prescription medicines. ? Eat foods that [...] and water are not available, use hand cage shift manager. ? Change your dressing as told by [...] th (more content not included)... Normal [facility] Urology Office/Clinic Noteon 11-05-2023 Urology Office/Clinic Note Chief Complaint S/P Hydrocelectomy HPI Staff F/u to right Hydrocelectomy done 10/11/23. Dx: Hydrocele, BPH and group home use of aspirin. Denies post op complications. [...] 0.29 [3] 3. Aspirin long-term use (Z79.82: [facility] (current) use of aspirin) Elevated risk for periop complications. Had significant oozing at time of hydrocelectomy. States he stopped taking aspirin a few days prior and has not yet resumed this. Advised pt to consider stopping this as risks outweigh benefits. Follow-up With When Contact Information JOSIE VELASQUEZ, George Hansen, URL [facility] [address], [place] [phone] Additional Instructions: 2 mos to evaluate PO [...] influenza virus vacc (more content not included)... [facility] Comment on above: Result Comment: Elec tronically Signed By: George SPANGLER MD\.br\Date and Time Signed: 11/05/23 11:16 EST\.br\Electronically Co-Signed By: Liliam Flanagan\.br\Date and Time Co-Signed: 11/05/23 11:13 EST Pre-Certification Formon Pre-Certification Form [id number]#1.0 0TIFF [facility] Pathology Noteon 10-16-2023 Pathology Note [id number]#1.0 0TIFF [facility] OARRS Reporton 10-12-2023 OARRS Report [id number]#1.0 0TIFF [facility] Operative Reporton Operative Report [id number]#1.00 TIFF [facility] Insurance Correspondenceon 0 10-08-2023 Insurance Correspondence [id number]#1 .00TIFF [facility] ECG 12-Leadon 09-28-2023 ECG 12-Lead [id number]#1.0 0TIFF [facility] Lab Reportson 09-27-2023 Lab Reports [id number]#1.0 0TIFF [facility] Lab Reports [id number]#1.0 0TIFF [facility] Consent for Procedure/Surger yon 08-13-2023 Consent for Procedure/Surgery [id number]#1. 00TIFF [facility] Physician Referralon 023 Physician Referral [id number]#1.0 0TIFF [facility] Screenson 08-13-2023 Screens [id number]#1. 00TIFF [facility] Ambulatory Visit Summaryon 10-10-2022 Ambulatory Visit Summary KRAIG FLOREZ JR :1960 Visit Date:08/10/2023 Ambulatory Visit Instructions Your Diagnosis Hydrocele BPH (benign prostatic hyperplasia) Aspirin long-term use Tests Performed Urnls Dip Stick Auto w/o Microscopy POC 79228 Your Care Team Attending Physician - George [...] hydrocelectomy Where: [facility] [address], [place] [address]- [phone] Medications What How Much When Instructions Unchanged [...] Urnls Dip Stick Auto w/o Microscopy POC 08817 (08/10/2023) Bilirubin Urine Dipstick - Negative Blood Urine Dipstick - Negative Glucose Urine Dipstick - Negative Ketones Urine Dipstick - Negative Leukocytes Urine Dipstick - Negative Nitrite Urine Dipstick - Negative Protein Urine Dipstick - Negative Specific [place] Urine Dipstick - 1.015 Urine Appearance Urine [...] these instructions at home: Medicines ? Take xxjg-vvr-swkhxvk and prescription medicines only as told by your health care provider. ? Ask your health care provider if the medicine prescribed to you: ? Requires you to avoid driving or using machinery. ? Can cause constipation. You may need to take these actions to prevent or treat constipation: ? Drink enough fluid to keep your urine pale yellow. ? Take imdl-jis-yssmyxg or prescription medicines. ? Eat foods that [...] and water are not available, use hand cage shift manager. ? Change your dressing as told by your health care provider. ? Leave stitches (sutures), skin glue, or (more content not included)... Normal [facility] Patient Educationon 08-10-20 Patient Education Urology Hydrocelectomy, [...] these instructions at home: Medicines ? Take ybdz-qtp-lmbovyc and prescription medicines only as told by your health care provider. ? Ask your health care provider if the medicine prescribed to you: ? Requires you to avoid driving or using machinery. ? Can cause constipation. You may need to take these actions to prevent or treat constipation: ? Drink enough fluid to keep your urine pale yellow. ? Take juko-phc-sjsflhv or prescription medicines. ? Eat foods that [...] and water are not available, use hand cage shift manager. ? Change your dressing as told by [...] says th (more content not included)... Normal [facility] Vital Signs Date Time Vital Sign Value Performing Clinician Hamilton barlow 06-05-2024 11:44-0400 Blood Pressure Location AUDREY MEJIAS [facility] 06-05-2024 11:44-0400 Diastolic blood pressure 61 mm[Hg] AUDREY MAGALIE [facility] 06-05-2024 11:44-0400 Heart rate 59 /min AUDREY MAGALIE [facility] 06-05-2024 11:44-0400 Respiratory rate 16 /min AUDREY MAGALIE [facility] 06-05-2024 11:44-0400 Systolic blood pressure 105 mm[Hg] AUDREY MAGALIE [facility] 12-31-2023 13:07-0400 Blood Pressure Location George SPANGLER [facility] 12-31-2023 13:07-0400 Body temperature 98.6 [degF] George SPANGLER [facility] 12-31-2023 13:07-0400 Diastolic blood pressure 65 mm[Hg] George SPANGLER [facility] 12-31-2023 13:07-0400 Heart rate 65 /min George SPANGLER [facility] 12-31-2023 13:07-0400 Respiratory rate 16 /min George SPANGLER [facility] 12-31-2023 13:07-0400 Systolic blood pressure 115 mm[Hg] George SPANGLER [facility] 08-10-2023 09:56-0500 Blood Pressure Location George SPANGLER [facility] 08-10-2023 09:56-0500 Diastolic blood pressure 69 mm[Hg] George SPANGLER [facility] 08-10-2023 09:56-0500 Heart rate 62 /min George SPANGLER [facility] 08-10-2023 09:56-0500 Respiratory rate 16 /min George SPANGLER [facility] 08-10-2023 09:56-0500 Systolic blood pressure 121 mm[Hg] George SPANGLER [facility] Encounters Encounter Date Encounter Type Care Provider Facility Start: 06-16-2024 End: 06-16-2024 ambulatory MITZI RICH Not Available Start: 06-05-2024 End: 06-05-2024 ambulatory AUDREY MEJIAS Facility:[facility] Start: 06-05-2024 End: 06-05-2024 Patient encounter procedure AUDREY MEJIAS [facility] Start: 12-31-2023 End: 12-31-2023 ambulatory George SPANGLER Facility:[facility] Start: 12-31-2023 End: 12-31-2023 Patient encounter procedure George SPANGLER [facility] Start: 12-26-2023 End: 12-26-2023 ambulatory JOVANNI GARCIA Not Available Start: 11-05-2023 End: 11-05-2023 ambulatory George SPANGLER Facility:[facility] Start: 11-05-2023 End: 11-05-2023 Patient encounter procedure George SPANGLER [facility] Start: 10-11-2023 End: 10-11-2023 ambulatory George SPANGLER Facility::[id number] Start: 08-10-2023 End: 08-10-2023 ambulatory JOVANNI GARCIA Facility:[facility] Start: 08-10-2023 End: 08-10-2023 Patient encounter procedure George SPANGLER [facility] Procedures Date Procedure Procedure Detail Performing Clinician Start: 10-11-2023 Hydrocelectomy George SPANGLER None (qualifier value) Clari SPANGLER Immunizations Immunization Date Immunization Notes Care Provider [facility] 08-19-2023 influenza virus vaccine, unspecified formulation George SPANGLER [facility] 07-14-2022 influenza virus vaccine, unspecified formulation George SPANGLER [facility] 09-03-2021 SARS-CoV-2 (COVID-19 ) mRNA-1273 vaccine George SPANGLER [facility] 07-11-2021 influenza virus vaccine, unspecified formulation George SPANGLER [facility] 01-13-2021 SARS-CoV-2 (COVID-19 ) mRNA-1273 vaccine George [employer] [facility] 12-14-2020 SARS-CoV-2 (COVID-19 ) mRNA-1273 vaccine George SPANGLER [facility] 07-10-2020 influenza virus vaccine, unspecified formulation George SPANGLER [facility] 07-20-2019 influenza virus vaccine, unspecified formulation George SPANGLER [facility] 06-21-2018 influenza virus vaccine, unspecified formulation George SPANGLER [facility] 07-04-2017 influenza virus vaccine, unspecified formulation George SPANGLER [facility] 07-12-2016 influenza virus vaccine, unspecified formulation George SPANGLER [facility] 07-14-2015 influenza virus vaccine, unspecified formulation George SPANGLER [facility] 08-08-2013 influenza virus vaccine, unspecified formulation George SPANGLER [facility] Payers Date Payer Category Payer Medicare [id number] 2016 Unknown [id number] 1960 Unknown [id number] 2.16.8 [id number] 1960 Unknown [id number] 2.16.8 [id number] 1960 Unknown [id number] 2.16.8 [id number] 1960 Unknown [id number] 2.16.8 [id number] 1960 Unknown [id number] 2.16.8 [id number] 1960 Unknown [id number] 2.16.84 [id number] 1960 Unknown [id number] 2.16.84 [id number] Social History Date Type Detail Facility Start: 08-10-2023 End: 06-05-2024 Tobacco smoking status Ex-smoker (finding) [facility] Tobacco smoking status Never [facility] Sex Assigned At Male [facility] Functional Status Date Assessment Result Facility 06-05-2024 Functional Status N/A [facility] 12-31-2023 Functional Status N/A [facility] 11-05-2023 Functional Status N/A [facility] 08-10-2023 Functional Status N/A [facility] Clinical Notes 08-10-2023 to 06-05-2024 Note Date [...] urethra. Follow these instructions at home: Take mxib-fsm-clvuzgl and prescription medicines only as told by [...] provider. Document Revised: 04/05/2022 Document Reviewed: 04/05/2022 [employer] Patient Education 2023 ideeli. Follow Up Care 12/31/2023 13:53:59 With:AUDREY MEJIAS PA-C, URL Address: [address] [place] [address] Business (1) When: only if needed [facility] [employer] 06-05-2024 Note Patient Education Urology Benign Prostatic [...] Follow these instructions at home: ? Take rzwm-yvj-cgiaiyp and prescription medicines only as told by [...] develop side effec (more content not included)... [facility] 12-31-2023 Hospital Discharge instructions Patient Education 12/31/2023 [...] Follow these instructions at home: Medicines Take imuc-ujs-hodihve and prescription medicines only as told by [...] provider. Document Revised: 05/04/2022 Document Reviewed: 05/04/2022 [employer] Patient Education 2022 ideeli. Follow Up Care 11/05/2023 11:16:02 With:JOSIE VELASQUEZ, George Hansen, URL Address: [facility] [address] , [place] [phone] When: Unknown Comments:4 mos (no labs) [facility] [place] 11-05-2023 Hospital Discharge instructions Patient [...] Follow these instructions at home: Medicines Take jkjm-zdx-flebngd and prescription medicines only as told by your health care provider. Ask your health care provider if the medicine prescribed to you: ?Requires you to avoid driving or using machinery. ?Can cause constipation. You may need to take these actions to prevent or treat constipation: ?Drink enough fluid to keep your urine pale yellow. ?Take uyqj-szf-kdfvoiu or prescription medicines. ?Eat foods that are [...] and water are not available, use hand cage shift manager. ?Change your dressing as told by your [...] provider. Document Revised: 05/04/2022 Document Reviewed: 05/04/2022 [employer] Patient Education 2022 ideeli. Follow Up Care 08/10/2023 10:33:30 With:JOSIE VELASQUEZ, George Hansen, URL Address: [facility] [address] , [place] [address] [phone] When: Unknown Comments:2 mos to evaluate PO hydrocele [facility] [place] 08-10-2023 Hospital Discharge instructions Patient [...] Follow these instructions at home: Medicines Take dcfn-vlm-skbdfzu and prescription medicines only as told by your health care provider. Ask your health care provider if the medicine prescribed to you: ?Requires you to avoid driving or using machinery. ?Can cause constipation. You may need to take these actions to prevent or treat constipation: ?Drink enough fluid to keep your urine pale yellow. ?Take ifqq-qst-omxzgdb or prescription medicines. ?Eat foods that are [...] and water are not available, use hand cage shift manager. ?Change your dressing as told by your [...] provider. Document Revised: 05/04/2022 Document Reviewed: 05/04/2022 [employer] Patient Education 2022 ideeli. 08/10/2023 10:24:16 Hydrocelectomy, Adult Hydrocelectomy, Adult A [...] including vitamins, herbs, eye drops, creams, and indo-ees-wzyxybq medicines. Any problems you or family members [...] provider tells you to take them. Taking auiu-cmq-noutkqx medicines, vitamins, herbs, and supplements. Surgery safety [...] provider. Document Revised: 05/04/2022 Document Reviewed: 05/04/2022 [employer] Patient Education 2022 ideeli. 08/10/2023 10:19:15 Hydrocele, Adult Hydrocele, Adult A [...] Follow these instructions at home: Medicines Take jyaq-cca-ikrpdgq and prescription medicines only as told by [...] provider. Document Revised: 05/04/2022 Document Reviewed: 05/04/2022 [employer] Patient Education 2022 ideeli. Follow Up Care 05/16/2023 15:44:22 With:JOSIE VELASQUEZ, George Hasnen, URL Address: [facility] [address] , [place] [address]- [phone] When: Unknown Comments:vini Hansen hydrocelectomy [facility] 08-10-2023 Note Chief Complaint Referral *Hydrocele [...] - 0.29 3. Aspirin long-term use (Z79.82: intermediate frame tender (current) use of aspirin) The patient has [...] When Contact Information JOSIE VELASQUEZ, George Hansen, [facility] [address] [place] [address] [phone] Additional Instructions: vini Hansen hydrocelectomy Patient Education [...] qualifying data Procedure/Surg (more content not included)... [facility] Comment on above: Result Comment: Elec tronically Signed By: George SPANGLER MD\.br\Date and Time Signed: 08/10/23 10:29 EST\.br\Electronically Co-Signed By: Liliam Flanagan\.br\Date and Time Co-Signed: 08/10/23 10:27 EST Evaluation + Plan note Future Appointments Appointment Date:11/05/2023 09:45:00 AM Scheduled Provider:George SPANGLER MD Location:[facility] Appointment Type:URO Office Visit [facility] Evaluation + Plan note Future Appointments Appointment Date:12/31/2023 12:15:00 PM Scheduled Provider:George SPANGLER MD Location:[facility] Appointment Type:URO Office Visit [facility] Evaluation + Plan note Future Appointments Appointment Date:05/19/2024 09:45:00 AM Scheduled Provider:George SPANGLER MD Location:[facility] Appointment Type:URO Office Visit [facility] Hospital course Narrative No data available for this section [facility] Progress note No data available for this section [facility] Summary Purpose Family History No Family History Records Found Advance Directives No Advanced Directives Records FoundNo Advanced Directives Records Found Additional Source Comments Patient Care team informatio n (unrecognized section and content) Personnel Name: DEVONTE DO Maharaj JOVANNI Patino Address: Address: [address] [place], [place] [address] Personnel Name: FLORENCECORDELIA DO MaharajJOVANNI Address: Address: [address] [place], [place] [address] Personnel Name: JOVANNI Mesa Address: Address: [address] [place], [place] [address] [address] Personnel Name: JOVANNI GARCIA DO Address: Address: [place] [id number]- (unrecognized sect ion and content) No Status Records FoundNo Status Records Found INFORMATION SOURCE (unrecogn ized section and content) DATE CREATED AUTHOR 06/06/2024 [facility] DATE CREATED AUTHOR AUTHOR'S NATALIYA ATION 06/17/2024 [facility] EPIC FOR RECORDS PERTAINING [...] BE BASED ON THE PRIMARY CLINICAL RECORDS. [employer] provides no warranty or guarantee of the accuracy or completeness of information in this document.
[2024-07-08] MEDS: 0.9 % SODIUM CHLORIDE 500 ML 50 ML IV (08:33)
[2024-07-08 09:32] VITALS: BP 124/76; PULSE 59; TEMP 37.2; O2SAT 98
[2024-07-08 09:47] VITALS: BP 135/75; PULSE 52; O2SAT 98
[2024-07-08 10:05] VITALS: BP 144/76; PULSE 54; O2SAT 98
--- NOTE | 2024-07-08 15:17 | W.PM.PROCNOT ---
Date of procedure: 07/08/24 Pre-op diagnosis: screening c-scope Post-op diagnosis: other (sigmoid diverticulosis ) Procedure: Previous colonoscopy: 2019 procedure: screening colonoscopy The patient was given IV conscious sedation.? The patient's SPO2 remained above 90% throughout the procedure. The colonoscope was inserted per rectum and advanced under direct vision to the cecum without difficulty.? The prep was good.? Findings: Terminal ileum os: normal Cecum/Ascending colon: normal Transverse colon: normal Descending/Sigmoid colon: diverticula Rectum/Anus: examined in normal and retroflexed positions and was normal Withdrawal Time was (minutes): 10 The colon was decompressed and the scope was removed.? The patient tolerated the procedure well. Recommendations/Plan: 1.? Lifestyle and dietary modifications as discussed 2.? F/U in 10 years 3.? Discussed with the family Anesthesia: MAC Surgeon: Baljeet Allison Estimated blood loss (mL): 0 Pathology: none sent Condition: stable Disposition: PACU
== END 2024-07-08 10:10 | disposition home or self-care (01) ==
PROVIDERS: Family Provider Family Medicine; Visit Provider Surgery
PROC: (CPT 00812; principal; 2024-07-08 09:10)
DX: Z12.11 Encounter for screening for malignant neoplasm of colon (principal); K57.30 Diverticulosis of large intestine without perforation or abscess without bleeding; Z87.891 Personal history of nicotine dependence; E78.5 Hyperlipidemia, unspecified; I10 Essential (primary) hypertension; N40.0 Benign prostatic hyperplasia without lower urinary tract symptoms; Z87.442 Personal history of urinary calculi; Z21 Asymptomatic human immunodeficiency virus [HIV] infection status
CPT/HCPCS: 00812; 45378; J2704